=== PATIENT | female | born 1955 | race Caucasian/White ===

== ENCOUNTER → 2016-08-03 | Outpatient (CLI) | payer BC ==
[~2016-08-03] MED LIST: HYDR-3785 PO; IBUP600T44; LEVO100T PO; MULT-506 PO; PRLSR20 PO
[2016-08-03 13:09] LABS: ESTIMATED AVERAGE GLUCOSE 126 mg/dl; HA1C FLAG Normal (Normal)
== END | disposition home or self-care (01) ==
LOC: C.LABBFT 07:36
PROVIDERS: ATTEND Internal Medicine
DX: E03.9 Hypothyroidism, unspecified (principal); R73.09 Other abnormal glucose

== ENCOUNTER → 2016-08-16 | Outpatient (CLI) | payer BC ==
--- NOTE | 2016-08-16 16:34 | MAMMOGRAPHY REPORT ---
BILATERAL DIGITAL SCREENING MAMMOGRAM WITH CAD: 08/16/2016 CLINICAL HISTORY: Routine screening. Patient has no complaints. TECHNIQUE: Current study was also evaluated with a Computer Aided Detection (CAD) system. Bilatera l CC and MLO views were obtained. COMPARISON: Comparison is made to exams dated: 02/18/2013 mammogram, 09/12/2010 mammogram, 09/14/2009 mammogram, 09/08/2009 mammogram - [facility], and 10/09/2007. BREAST COMPOSITION: There are scattered areas of fibroglandular density in both breasts. FINDINGS: No suspicious masses, calcifications, or areas of architectural distortion are noted in e ither breast. There has been no significant interval change compared to prior exams. IMPRESSION: ACR BI-RADS CATEGORY 1: NEGATIVE There is no mammographic evidence of malignancy. A 1 year screening mammogram is recommended. The p atient will receive written notification of the results. Approximately 10% of breast cancers are not detected with mammography. A negative mammographic repor t should not delay biopsy if a clinically suggestive mass is present. Edna Ruiz M.D. ah/:08/16/2016 15:39:50 Clinical Physician Assistant: Joyce Crocker RT(R)(M), [facility] letter sent: Normal 1/2 BI-RADS Code: ACR BI-RADS Category 1: Negative
== END | disposition home or self-care (01) ==
LOC: C.MAMM 15:18
PROVIDERS: ATTEND Internal Medicine
DX: Z12.31 Encounter for screening mammogram for malignant neoplasm of breast (principal)

== ENCOUNTER → 2016-08-23 | Outpatient (CLI) | payer BC | END | disposition home or self-care (01) | LOC: C.PAPS 11:42 | PROVIDERS: ATTEND Obstetrics & Gynecology | DX: Z01.419 Encounter for gynecological examination (general) (routine) without abnormal findings (principal) ==

== ENCOUNTER → 2017-07-29 | Day surgery (SDC) | payer BC, OTHER ==
[2017-07-19 11:00] VITALS: BMI 28.0
[~2017-07-29] VITALS: Ht 175.3 cm; Wt 86.4 kg
[~2017-07-29] MED LIST changes: -HYDR-3785 PO; -IBUP600T44; -LEVO100T PO; +LEVO100T7 PO; +LIDOCAINE HCL 2% 2 ML VIAL (20MG/ML) ONE; +MIDAZOLAM HCL 1 MG/ML 2ML VIAL ONE; +ONDANSETRON INJ 2 MG/ML 2 ML VIAL ONE; +PROP1TAB PO; +PROPOFOL IV EMULSION 10 MG/ML 20 ML VIAL IV ONE; +SODIUM CHLORIDE 0.9% 500ML 500 ML IV ONE; +VITAMIN D PO
[2017-07-29 08:12] VITALS: Ht 175.3 cm; Wt 86.4 kg
--- NOTE | 2017-07-29 08:38 | Endo History and Physical ---
History & Physical Date of Service: Jul 29, 2017. Chief Complaint: POLYPS Referring Physician: DR. LUNA History of Present Illness 61 yo CF who presents for colonoscopy secondary to history of colon polyps. 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) Hx Thoracic Surgery: No Hx Orthopedic: No Hx Urinary Tract Surgery: No Family History None Social History Smoking Status: Never Smoker Hx Substance Use: No Hx Alcohol Use: Yes (OCCASIONALLY) Allergies Coded Allergies: Sulfa Drugs (Verified Allergy, Mild, SICK IN STOMACH, 07/19/17) Benzocaine (Verified Allergy, Unknown, TOPICAL BENZOCAINE>SKIN REACTION, ) Uncoded Allergies: AMOXICILLIAN (Allergy, Severe, SWELLING, 07/29/17) Current Medications Reported Home Medications Medications Dose Route/Sig Max Daily Dose Days Date Category [Vitamin D] 1 Tab PO HS 07/19/17 Reported Multivitamin (Multivitamins) Tab 1 Tab PO HS 07/19/17 Reported Inderal (Propranolol HCl) 60 Mg Tab 60 Mg PO HS 07/19/17 Reported Prilosec (Omeprazole) 20 Mg Capcr 20 Mg PO HS 07/19/17 Reported Levothyroxine Sodium 100 Mcg Tab 1 Tab PO HS 07/19/17 Reported Vital Signs Weight (Kilograms): 86.36 Height (Feet): 5 Height (Inches): 9 Date Time Temp Pulse Resp B/P (MAP) Pulse Ox O2 Delivery O2 Flow Rate FiO2 07/29/17 08:21 36.1 77 20 140/87 (104) 98 Room Air Physical Exam General Appearance: WD/WN, no apparent distress Respiratory/Chest: Auscultation: breath sounds normal Cardiovascular: Heart Auscultation: RRR Abdomen: Bowel Sounds: normal Inspection & Palpation: soft, non-distended, no tenderness, guarding & rebound Assessment and Plan Assessment: 61 yo CF who presents for colonoscopy secondary to history of colon polyps. Plan: Proceed with colonoscopy.
--- NOTE | 2017-07-29 09:12 | Discharge Instructions ---
Endoscopy Patient Instructions Date / Procedure(s) Performed Jul 29, 2017. Colonoscopy Allergy Information Coded Allergies: Sulfa Antibiotics (Verified Allergy, Mild, SICK IN THE STOMACH, 07/29/17) Benzocaine (Verified Allergy, Unknown, TOPICAL BENZOCAINE>SKIN REACTION, ) Uncoded Allergies: AMOXICILLIAN (Allergy, Severe, SWELLING, 07/29/17) Discharge Date / Findings Jul 29, 2017. Colon polyps Diverticulosis Internal hemorrhoids Medication Instructions OK to resume all medications today as prescribed Reported Home Medications Medications Dose Route/Sig Max Daily Dose Days Date Category [Vitamin D] 1 Tab PO HS 07/19/17 Reported Multivitamin (Multivitamins) Tab 1 Tab PO HS 07/19/17 Reported Inderal (Propranolol HCl) 60 Mg Tab 60 Mg PO HS 07/19/17 Reported Prilosec (Omeprazole) 20 Mg Capcr 20 Mg PO HS 07/19/17 Reported Levothyroxine Sodium 100 Mcg Tab 1 Tab PO HS 07/19/17 Reported Provider Instructions Activity Restrictions - No exercising or heavy lifting for 24 hours. - Do not drink alcohol the day of the procedure. - Do not drive a car or operate machinery until the day after the procedure. - Do not make any important decisions or sign important papers in 24 hours after the procedure. Following Day: - Return to full activity which may include returning to work/school. Diet Start your diet with liquids and light foods (jello, soup, juice, toast). Then eat your usual diet if not nauseated. Treatment For Common After Affects For mild abdominal pain, bloating, or excessive gas: - Rest - Eat lightly - Lie on right side Follow-Up Information Follow-up with DR. LUNA as scheduled Anesthesia Information What You Should Know You have had a procedure that required some medicine to reduce anxiety and discomfort. This treatment is called moderate sedation. After receiving the treatment, you may be sleepy, but you will be able to breathe on your own. The effects of the treatment may last for several hours. Follow these instructions along with Activity/Diet recommendations noted above: * Do NOT do anything where dizziness or clumsiness would be dangerous. * Rest quietly at home today, then you can be up and about tomorrow. * Have a responsible person stay with you the rest of today. * You may have had an I.V. today. If so, you may take the dressing off later today. Recommendations Call your doctor if: * Trouble breathing * Continuous vomiting for more than 24 hours * Temperature above 101 degrees * Severe abdominal pain or bloating * Pain not relieved by pain medicine ordered * There is increased drainage or redness from any incision * A large amount of rectal bleeding greater than 2-3 tablespoons. (If you had a polyp/s removed or have hemorrhoids, a small amount of blood - from the rectum is to be expected.) * You have any unanswered questions or concerns. IN THE EVENT OF A SERIOUS EMERGENCY, GO TO THE NEAREST EMERGENCY ROOM Your discharge instructions were prepared by provider Wayne Green. Patient Instructions Signature Page Ana Rivera Patient (or Guardian) Signature/Date: I have read and understand the instructions given to me by my caregivers. Caregiver/RN/Doctor Signature/Date: The above-named patient and/or guardian has received patient instructions on this date. + Original Patient Signature Page (only) stays with chart. Please make copy for patient.
--- NOTE | 2017-07-29 09:20 | GI REPORT ---
Procedure Date: 07/29/2017 8:23 AM Procedure: Colonoscopy Indications: High risk colon cancer surveillance: Personal history of colonic polyps Medicines: Monitored Anesthesia Care Complications: No immediate complications. Estimated Blood Loss: Estimated blood loss: none. Procedure: Pre-Anesthesia Assessment: - Prior to the procedure, a History and Physical was performed, and patient medications and allergies were reviewed. The patient's tolerance of previous anesthesia was also reviewed. The risks and benefits of the procedure and the sedation options and risks were discussed with the patient. All questions were answered, and informed consent was obtained. Prior Anticoagulants: The patient has taken no previous anticoagulant or antiplatelet agents. ASA Grade Assessment: II - A patient with mild systemic disease. After reviewing the risks and benefits, the patient was deemed in satisfactory condition to undergo the procedure. After I obtained informed consent, the scope was passed under direct vision. Throughout the procedure, the patient's blood pressure, pulse, and oxygen saturations were monitored continuously. The scope was introduced through the anus and advanced to the terminal ileum. The colonoscopy was performed without difficulty. The patient tolerated the procedure well. The quality of the bowel preparation was good. The terminal ileum, ileocecal valve, appendiceal orifice, and rectum were photographed. Findings: The perianal and digital rectal examinations were normal. A 3 mm polyp was found in the ascending colon. The polyp was sessile. The polyp was removed with a cold snare. Resection and retrieval were complete. A 8 mm polyp was found in the sigmoid colon. The polyp was pedunculated. The polyp was removed with a hot snare. Resection and retrieval were complete. Scattered small-mouthed diverticula were found in the entire colon. Non-bleeding internal hemorrhoids were found during retroflexion. The hemorrhoids were small. Impression: - One 3 mm polyp in the ascending colon, removed with a cold snare. Resected and retrieved. - One 8 mm polyp in the sigmoid colon, removed with a hot snare. Resected and retrieved. - Diverticulosis in the entire examined colon. - Non-bleeding internal hemorrhoids. Recommendation: - Resume previous diet. - Continue present medications. - Repeat colonoscopy for surveillance based on pathology results. - Return to primary care physician as previously scheduled. Wayne Green DO 07/29/2017 9:20:01 AM This report has been signed electronically. Note Initiated On: 07/29/2017 8:23 AM I attest to the content of the Intraoperative Record and orders documented therein, exceptions below
--- NOTE | 2017-07-29 09:35 | Anesthesiology Progress Note ---
Anesthesia Post Op Note Date & Time Jul 29, 2017 at 09:35 Vital Signs Pain Intensity: 0 Vital Signs Past 12 Hours Date Time Temp Pulse Resp B/P (MAP) Pulse Ox O2 Delivery O2 Flow Rate FiO2 07/29/17 09:30 56 20 126/75 (92) 95 Room Air 07/29/17 09:15 65 20 122/70 (87) 94 Room Air 07/29/17 08:21 36.1 77 20 140/87 (104) 98 Room Air Notes Mental Status: alert / awake / arousable, participated in evaluation Pt Amnestic to Procedure: Yes Nausea / Vomiting: adequately controlled Pain: adequately controlled Airway Patency, RR, SpO2: stable & adequate BP & HR: stable & adequate Hydration State: stable & adequate Anesthetic Complications: no major complications apparent
[2017-07-29 09:45] VITALS: BP 131/85; PULSE 58; O2SAT 95
== END | disposition home or self-care (01) ==
LOC: C.GI 07:55
PROVIDERS: ATTEND Internal Medicine
DX: Z12.11 Encounter for screening for malignant neoplasm of colon (principal); D12.2 Benign neoplasm of ascending colon; D12.5 Benign neoplasm of sigmoid colon; Z86.010 Personal history of colon polyps; K57.30 Diverticulosis of large intestine without perforation or abscess without bleeding; K64.8 Other hemorrhoids; Z90.49 Acquired absence of other specified parts of digestive tract; Z90.721 Acquired absence of ovaries, unilateral

== ENCOUNTER → 2017-08-09 | Outpatient (CLI) | payer OTHER ==
[~2017-08-09] MED LIST changes: -LIDOCAINE HCL 2% 2 ML VIAL (20MG/ML) ONE; -MIDAZOLAM HCL 1 MG/ML 2ML VIAL ONE; -ONDANSETRON INJ 2 MG/ML 2 ML VIAL ONE; -PROPOFOL IV EMULSION 10 MG/ML 20 ML VIAL IV ONE; -SODIUM CHLORIDE 0.9% 500ML 500 ML IV ONE
[2017-08-09 12:37] LABS: BASO ABS # 0.07 K/uL (0-0.2); EOS % 2.4 %; EOS ABS # 0.16 K/uL (0-0.5); HEMOGLOBIN 13.6 g/dL (12.0-16.0); IG# 0.01 K/uL (0.00-0.02); LYMPH % 32.2 %; LYMPH ABS # 2.17 K/uL (1.2-3.4); MEAN CELL VOLUME 92.5 fL (80-100); MEAN CORPUSCULAR HGB CONC 32.4 g/dl (32-36); MEAN PLATELET VOLUME 10.5 fL (7.4-10.4); MONO % 11.6 %; MONO ABS # 0.78 K/uL (0.11-0.59); NEUT % 52.7 %; NEUT ABS # 3.55 K/uL (1.4-6.5); PLATELET COUNT 272 K/uL (130-400); RED CELL DISTRIBUTION WIDTH CV 14.1 % (11.5-14.5); RED CELL DISTRIBUTION WIDTH SD 47.4 fL (36.4-46.3); WHITE BLOOD COUNT 6.74 K/uL (4.8-10.8)
== END | disposition home or self-care (01) ==
LOC: C.LABBFT 08:01
PROVIDERS: ATTEND Internal Medicine
DX: R73.03 Prediabetes (principal)

== ENCOUNTER → 2017-10-21 | Outpatient (CLI) | payer OTHER | END | disposition home or self-care (01) | LOC: C.MAMM 09:20 | PROVIDERS: ATTEND Internal Medicine | DX: M85.88 Other specified disorders of bone density and structure, other site (principal) ==

== ENCOUNTER → 2018-01-30 | Outpatient (CLI) | payer OTHER ==
[2018-01-30 13:13] LABS: ALBUMIN 3.6 gm/dl (3.4-5.0); ALKALINE PHOSPHATASE 92 U/L (45-117); ALT/SGPT 32 U/L (12-78); AST/SGOT 19 U/L (15-37); BLOOD UREA NITROGEN 13 mg/dl (7-18); CALCIUM 8.6 mg/dl (8.5-10.1); CARBON DIOXIDE 25 mmol/L (21-32); CHOLESTEROL 149 mg/dl (0-200); CREATININE 1.08 mg/dl (0.60-1.20); GLUCOSE 105 mg/dl (70-99); LDL CHOLESTEROL CALCULATED 72 mg/dl; POTASSIUM 4.5 mmol/L (3.5-5.1); SODIUM 140 mmol/L (136-145); TOTAL PROTEIN 7.3 gm/dl (6.4-8.2)
== END | disposition home or self-care (01) ==
LOC: C.LABBFT 08:59
PROVIDERS: ATTEND Physician Assistant Medical
DX: E03.9 Hypothyroidism, unspecified (principal); R73.03 Prediabetes

== ENCOUNTER 2020-02-28 07:24 | Inpatient (IN) ==
--- NOTE | 2020-02-28 07:59 | Emergency Department Note ---
Impression & Plan Bright red rectal bleeding ED Provider Note Provider: Cooper Gross MD DATE OF SERVICE: 02/27/2020 CHIEF COMPLAINT: Rectal bleeding HISTORY OF PRESENT ILLNESS: Patient is a 64-year-old female with a history of prediabetes, hypothyroidism, GERD, history of tubular adenoma with a colonoscopy last in July 2017 scheduling for repeat colonoscopy in 2020 presenting today complaining of rectal bleeding. Patient states that yesterday evening around dinnertime have some dark red blood noted in her stool. This morning had a bowel movement that was all bright red blood. Denies any pain. Denies fever currently. Denies sick contacts or suspect food intake. Denies history of similar bleeding. Patient is not on high risk anticoagulant or antiplatelets. Patient states compliance with her home omeprazole. Denies nausea or vomiting. Denies symptomatic anemia such as lightheadedness, dizziness, shortness of breath, or chest pain. Patient states she was a little bit achy last night and took 2 Advil but does not do this regularly. REVIEW OF SYSTEMS: A total of 10 review of systems was obtained and negative except as stated above in the HPI. PAST MEDICAL HISTORY: As noted above MEDICATIONS: Reviewed patient's home medications which do not occlude anticoagulants or antiplatelets. SOCIAL HISTORY: and lives at home with PHYSICAL EXAM: GENERAL: alert and oriented in no acute distress on stretcher Head: normocephalic and atraumatic EYES: No injection, discharge or icterus. NECK: Trachea midline. Supple. ENT: Mucous membranes pink and moist. LUNGS: Airway patent. No retractions. Breath sounds clear with good air entry bilaterally. HEART: Regular rate and rhythm. No chest wall tenderness ABDOMEN: Soft and non-tender, without guarding or rebound. No masses Rectal: With nurse data sciences director does show bright blood blood per rectum with maybe a slight palpable internal hemorrhoid. BACK: No bilateral flank tenderness. SKIN: Acyanotic, warm, dry, without rashes EXTREMITIES: Without swelling, tenderness or deformity NEUROLOGICAL: No focal deficits. No aphasia. No facial droop or slurred speech. Ambulatory. EK beats minute normal sinus rhythm. No PVC or PAC. No acute ST segment elevation or depression. CONTINUOUS CARDIAC MONITORING: was ordered and showed a heart rate of 70 bpm in normal sinus rhythm Patient's hypertension was referred to the hospitalist HOSPITAL COURSE: 07 Patient was first seen and H&P performed. 0931 Patient reassessed and updated. Patient was having some improvement compared to earlier hypotension and nausea with the IV start. Discussed with her findings and recommendation for further observation. Patient's laboratory studies and imaging reviewed. Differential includes Diverticulosis, AVM, coagulopathy, colitis, inflammatory bowel disease, malignancy, Jade-Rios tear, esophagitis, peptic ulcer dise ase, variceal bleed, gastritis, epistaxis, fissure, hemorrhoids, as well as other pathologies. IMPRESSION/MEDICAL DECISION MAKING: Patient is ambulatory in the room without tachycardia or hypotension initially. Benign abdomen. Patient states some slight bleeding yesterday is now bright red in the toilet today. Seems less likely to be infectious. No history of similar. Already on a PPI. Believe less likely to be an upper GI bleed more likely to be lower in nature. Colonoscopy from 2018 was reviewed as well as her prior medical record. CT of the abdomen pelvis to look for possible inf lammatory changes or signs of bleeding was complete as well as basic laboratory studies. Hemoglobin is 11.7 approximately 2 g lower than 10 days ago when she had previous labs. No thrombocytopenia. Electrolytes within normal limits. Kidney function stable. No transaminitis. No evidence of lipase elevation indicative of pancreatitis. Patient's blood pressure did drop which became nauseous and slight diaphoretic after IV placement. Given some Zofran. IV fluid bolus. Patient did have improvement with this. CT without acute findings. Unsure of exact source although she is much more likely to be lower GI rather than upper GI bleed given her risk factors. Did give a bolus of Protonix in any case. Discussed with her given that she is dropped 2 g over the past 10 days as well as continued bright red bleeding with a further observation and possible GI consultation would be reasonable in the hospital. The hospitalist group was contacted. DIAGNOSIS: Bright red rectal bleeding. DISPOSITION: Hospitalist evaluate. Past Med/Surg History Medical History GERD (gastroesophageal reflux disease) Hypothyroidism Osteopenia Prediabetes Tubular adenoma Family History (Updated 02/12/20 @ 15:11 by Lucina Wood MA) Father Myocardial infarction Denies family history of Ovarian cancer Prostate cancer Deep vein thrombosis Depression Breast cancer Lung cancer COPD (chronic obstructive pulmonary disease) Colorectal cancer Social History Smoking Status: Never smoker Second Hand Exposure: No; Hx Alcohol Use: Yes Alcohol type: wine Alcohol Intake Frequency: Monthly or Less Hx Substance Use: No Preferred Language: Welsh Communication Ability: Effective Visual Impairment: No Limitations Hearing Ability: Normal Principal Systems Architect Required: No Beliefs That Will Affect Care: None marital status: Current Living Situation: Spouse and Family Current Living Situation Comment: Spouse and son current occupational status: employed current occupation: [employer] Other Information That Helps Us Care for You: No Feels Safe at Home: Yes Safety Concerns: Feels Safe At This Time Childhood Exposure to Second-Hand Smoke: No caffeine: Yes during the past year weight has: remained stable Dental Care, Regularly: Yes Physical Activity Frequency: Daily Physical Activity Frequency Comment: walk Seatbelt Use: always Sunscreen Use: Yes Allergies Allergies Allergy/AdvReac Type Severity Reaction Status Date / Time amoxicillin Allergy Severe .swelling Verified 02/28/20 09:29 Sulfa (Sulfonamide Allergy Mild SICK IN Verified 02/28/20 07:46 Antibiotics) THE STOMACH benzocaine Allergy Unknown TOPICAL Verified 02/28/20 07:46 BENZOCAINE>SKIN REACTION Home Meds Home Medications Medication Instructions Recorded Confirmed cholecalciferol (vitamin D3) 25 mcg PO HS #0 07/19/17 02/28/20 [Vitamin D3] multivitamin 1 tab PO HS #0 tab 07/19/17 02/28/20 ibuprofen [Advil Liqui-Gel] 400 mg PO Q6H PRN 02/28/20 02/28/20 levothyroxine 100 mcg PO HS 02/28/20 02/28/20 omeprazole 20 mg PO HS 02/28/20 02/28/20 propranolol 60 mg PO HS 02/28/20 02/28/20 Results & Data (ED) Vital Signs Vital Signs - 24 hr 02/28/20 07:27 02/28/20 07:34 02/28/20 08:18 Temperature 36.5 C Temperature Source Oral Pulse Rate 66 Pulse Rate [Apical] 65 Respiratory Rate 18 18 Blood Pressure 153/93 H Blood Pressure [Left Arm] 96/66 L Blood Pressure Mean 113 Blood Pressure Mean [Left Arm] 76 Pulse Oximetry 98 98 98 Oxygen Delivery Method Room Air Room Air Room Air Sepsis Recent Fever Within 48 Hours No Sepsis New/Unexplained Change in Mental Status No Sepsis Action Taken by Nursing No Action Required 02/28/20 09:09 02/28/20 11:00 Temperature Temperature Source Pulse Rate Pulse Rate [Apical] 61 72 Respiratory Rate 18 Blood Pressure Blood Pressure [Left Arm] 109/65 120/78 Blood Pressure Mean Blood Pressure Mean [Left Arm] 79 92 Pulse Oximetry 97 Oxygen Delivery Method Room Air Sepsis Recent Fever Within 48 Hours Sepsis New/Unexplained Change in Mental Status Sepsis Action Taken by Nursing Laboratory Data Result diagrams: 02/28/20 08:05 02/28/20 08:05 Lab Results 02/28/20 02/28/20 02/28/20 Range/Units 07:59 08:05 08:05 WBC 6.00 (4.8-10.8) K/uL RBC 3.93 L (4.2-5.4) M/uL Hgb 11.7 L (12.0-16.0) g/dL Hct 35.9 L (37-47) % MCV 91.3 (80-100) fL MCH 29.8 (25-34) pg MCHC 32.6 (32-36) g/dL RDW Std Deviation 48.7 H (36.4-46.3) fL RDW Coeff of Taco 14.4 (11.5-14.5) % Plt Count 253 (130-400) K/uL MPV 10.6 H (7.4-10.4) fL Immature Gran % (Auto) 0.2 % Neut % (Auto) 42.8 % Lymph % (Auto) 41.7 % [place] % (Auto) 11.8 % Eos % (Auto) 2.8 % Baso % (Auto) 0.7 % Neut # (Auto) 2.57 (1.4-6.5) K/uL Lymph # (Auto) 2.50 (1.2-3.4) K/uL [place] # (Auto) 0.71 H (0.11-0.59) K/uL Eos # (Auto) 0.17 (0-0.5) K/uL Baso # (Auto) 0.04 (0-0.2) K/uL Immature Gran # (Auto) 0.01 (0.00-0.02) K/uL PT (9.0-12.0) Seconds INR (0.9-1.1) Sodium 143 (136-145) mmol/L Potassium 3.9 (3.5-5.1) mmol/L Chloride 112 H (98-107) mmol/L Carbon Dioxide 25 (21-32) mmol/L Anion Gap 6.0 (3-11) BUN 15 (7-18) mg/dl Creatinine 1.06 (0.6-1.2) mg/dl Est Cr Clr Drug Dosing 61.6 ml/min Est GFR ( Amer) 63.8 Est GFR (Non-Af Amer) 55.1 BUN/Creatinine Ratio 14.2 (10-20) Glucose 117 H (70-99) mg/dl Calcium 8.5 (8.5-10.1) mg/dl Total Bilirubin 0.5 (0.2-1) mg/dl AST 19 (15-37) U/L ALT 25 (12-78) U/L Alkaline Phosphatase 81 (45-117) U/L Troponin I < 0.015 (0-0.045) ng/ml Total Protein 6.6 (6.4-8.2) gm/dl Albumin 3.1 L (3.4-5.0) gm/dl Globulin 3.5 (2.5-4.0) gm/dl Albumin/Globulin Ratio 0.9 (0.9-2) Lipase 78 (73-393) U/L Blood Type O Positive Antibody Screen NEGATIVE 02/28/20 Range/Units 08:05 WBC (4.8-10.8) K/uL RBC (4.2-5.4) M/uL Hgb (12.0-16.0) g/dL Hct (37-47) % MCV (80-100) fL MCH (25-34) pg MCHC (32-36) g/dL RDW Std Deviation (36.4-46.3) fL RDW Coeff of Taco (11.5-14.5) % Plt Count (130-400) K/uL MPV (7.4-10.4) fL Immature Gran % (Auto) % Neut % (Auto) % Lymph % (Auto) % [place] % (Auto) % Eos % (Auto) % Baso % (Auto) % Neut # (Auto) (1.4-6.5) K/uL Lymph # (Auto) (1.2-3.4) K/uL [place] # (Auto) (0.11-0.59) K/uL Eos # (Auto) (0-0.5) K/uL Baso # (Auto) (0-0.2) K/uL Immature Gran # (Auto) (0.00-0.02) K/uL PT 11.0 (9.0-12.0) Seconds INR 1.0 (0.9-1.1) Sodium (136-145) mmol/L Potassium (3.5-5.1) mmol/L Chloride (98-107) mmol/L Carbon Dioxide (21-32) mmol/L Anion Gap (3-11) BUN (7-18) mg/dl Creatinine (0.6-1.2) mg/dl Est Cr Clr Drug Dosing ml/min Est GFR ( Amer) Est GFR (Non-Af Amer) BUN/Creatinine Ratio (10-20) Glucose (70-99) mg/dl Calcium (8.5-10.1) mg/dl Total Bilirubin (0.2-1) mg/dl AST (15-37) U/L ALT (12-78) U/L Alkaline Phosphatase (45-117) U/L Troponin I (0-0.045) ng/ml Total Protein (6.4-8.2) gm/dl Albumin (3.4-5.0) gm/dl Globulin (2.5-4.0) gm/dl Albumin/Globulin Ratio (0.9-2) Lipase (73-393) U/L Blood Type Antibody Screen Administered Medications Potassium Chloride/Sodium Chloride (Normal Saline W/20 Meq Kcl) 20 meq in 1,000 mls @ 125 mls/hr IV .Q8H PERI Stop: 03/29/20 12:59 Last Admin: 02/28/20 13:10 Dose: 125 mls/hr Documented by: [id number] Discontinued Medications Sodium Chloride (Nss 1000ml) 1,000 mls @ 999 mls/hr IV .Q1H1M ONE Stop: 02/28/20 09:26 Last Infusion: 02/28/20 09:41 Dose: 0 mls/hr Documented by: [id number] Admin: 02/28/20 08:31 Dose: 999 mls/hr Documented by: [id number] Pantoprazole Sodium 80 mg/ (Dextrose) 100 mls @ 400 mls/hr IV ONE STA Stop: 02/28/20 10:06 Last Infusion: 02/28/20 11:05 Dose: 0 mls/hr Documented by: [id number] Admin: 02/28/20 10:42 Dose: 400 mls/hr Documented by: [id number] Ioversol (Optiray 320 125ml) 118 ml IV ONCE ONE Stop: 02/28/20 08:06 Last Admin: 02/28/20 08:05 Dose: 118 ml Documented by: [id number] Ondansetron HCl (Ondansetron Inj 2 Mg/Ml 2 Ml Vial) 4 mg IV NOW STA Stop: 02/28/20 08:08 Last Admin: 02/28/20 08:09 Dose: 4 mg Documented by: [id number] Discharge Plan Visit Data Chief Complaint: GI Bleed Stated Complaint: INTERNAL BLEEDING ED Provider: Cooper Gross Discharge Problem: Bright red rectal bleeding Patient Disposition: Admitted As Inpatient Discharge Instructions Interventions: ED Discharge Assessment Last Done: 02/28/20 11:32
[2020-02-28] MEDS ORDERED: OPTIRAY 320 125ml IV ONE (08:05)
[2020-02-28] MEDS ORDERED: ONDANSETRON INJ 2 MG/ML 2 ML VIAL IV STA (08:07)
[2020-02-28 08:18] LABS: Basophils # (auto) 0.04 K/uL (0-0.2); Basophils % (auto) 0.7 %; Eosinophils # (auto) 0.17 K/uL (0-0.5); Eosinophils % (auto) 2.8 %; Hematocrit (blood only) 35.9 % (37-47); Hemoglobin 11.7 g/dL (12.0-16.0); Immature Granulocytes # (auto) 0.01 K/uL (0.00-0.02); Immature Granulocytes % (auto) 0.2 %; Lymphocytes % (auto) 41.7 %; Mean Corpuscular Hemoglobin 29.8 pg (25-34); Mean Corpuscular Hgb Conc 32.6 g/dL (32-36); Mean Corpuscular Volume 91.3 fL (80-100); Mean Platelet Volume 10.6 fL (7.4-10.4); Monocytes # (auto) 0.71 K/uL (0.11-0.59); Monocytes % (auto) 11.8 %; Neutrophils # (auto) 2.57 K/uL (1.4-6.5); Neutrophils % (auto) 42.8 %; Platelet Count 253 K/uL (130-400); RDW Coefficient of Variation 14.4 % (11.5-14.5); RDW Standard Deviation 48.7 fL (36.4-46.3); Red Blood Count 3.93 M/uL (4.2-5.4)
[2020-02-28] MEDS ORDERED: SODIUM CHLORIDE 0.9% 1000ML 1,000 ML IV ONE (08:26)
[2020-02-28 08:36] LABS: Alanine Aminotransferase 25 U/L (12-78); Albumin Level 3.1 gm/dl (3.4-5.0); Aspartate Aminotransferase 19 U/L (15-37); BUN Creatinine Ratio 14.2 (10-20); Blood Urea Nitrogen 15 mg/dl (7-18); Calcium 8.5 mg/dl (8.5-10.1); Carbon Dioxide 25 mmol/L (21-32); Chloride 112 mmol/L (98-107); Creatinine Clr Calc Pharmacy 61.6 ml/min; Est GFR (African American) 63.8; Est GFR (Non-African American) 55.1; Glucose 117 mg/dl (70-99); Lipase 78 U/L (73-393); Potassium 3.9 mmol/L (3.5-5.1); Sodium 143 mmol/L (136-145)
[2020-02-28 08:41] LABS: Albumin Globulin Ratio 0.9 (0.9-2); Alkaline Phosphatase 81 U/L (45-117); Bilirubin,Total 0.5 mg/dl (0.2-1); Globulin 3.5 gm/dl (2.5-4.0); Total Protein 6.6 gm/dl (6.4-8.2); Troponin I < 0.015 ng/ml (0-0.045)
--- NOTE | 2020-02-28 09:19 | CT Scan Report ---
CT angio abdomen pelvis w con CT DOSE: 811.97 mGy.cm CLINICAL HISTORY: rectal bleeding TECHNIQUE: CT angiography abdomen and pelvis was performed in a dynamic helical fashion during intrav enous administration of 118 cc of Optiray 320. MIP images were acquired. A dose lowering technique w as utilized adhering to the principles of ALARA. COMPARISON STUDY: CT scan performed July 2006 FINDINGS: Visualized portions lung bases reveal mild dependent atelectatic change. There is hepatic steatosis. There is a stable 11 mm right lobe hepatic hypodensity. This is felt to b e benign. There is no ductal dilatation. The gallbladder is surgically absent. There is a 54 mm hypodense splenic mass with probable septations. This potentially corresponds to an 11 mm splenic hypodensity visualized in the preceding study. This lesion is indeterminate given the s ignificant interval growth. No pancreatic masses are visualized. No adrenal masses are visualized. There is no hydronephrosis. No solid renal masses are visualized in this arterial phase study. There are no transition zones to indicate bowel obstruction. There is leos colonic diverticulosis. The re is no current evidence of acute diverticulitis. There are no findings to indicate acute appendicit is. There is no ascites. There is no free intraperitoneal air. There is no pathologic adenopathy. There are no abnormal pelvic masses. No destructive skeletal lesions are visualized. There is no evidence of aortic aneurysm. There is no evidence for superior mesenteric celiac or renal artery stenosis. 2 right renal arteries are visualized. The inferior mesenteric artery is patent. There is no evidence for iliac artery stenosis. IMPRESSION: 1. No evidence of aortic aneurysm. 2. No evidence of aortic or iliac artery stenosis. 3. No evidence of celiac superior mesenteric or renal artery stenosis. 4. No evidence of bowel obstruction. No evidence of free air 5..Leos-colonic diverticulosis. No evidence of acute diverticulitis 6. Indeterminate 5.4 cm splenic mass 7. Hepatic steatosis ACT 112: Negative or not required by law. Electronically signed by: Murtaza Arriaza M.D. 02/28/2020 9:18 AM
[2020-02-28] MEDS ORDERED: PANTOprazole 80 MG in DEXTROSE 5% 100 ML IV STA (09:52)
--- NOTE | 2020-02-28 10:28 | Electrocardiogram Report ---
Test Reason : Blood Pressure : / mmHG Vent. Rate : 065 BPM Atrial Rate : 065 BPM P-R Int : 178 ms QRS Dur : 070 ms QT Int : 414 ms P-R-T Axes : 021 -07 005 degrees QTc Int : 430 ms Normal sinus rhythm Minimal voltage criteria for LVH, may be normal variant Borderline ECG No previous ECGs available Confirmed by Matt Galvin ([id number]) on 02/28/2020 10:28:01 AM Referred By: REFERRED SELF Confirmed By:Matt Galvin
--- NOTE | 2020-02-28 11:33 | History & Physical Report ---
Date of Service February 28, 2020 Assessment & Plan (1) Bright red rectal bleeding: Patient is a 64 yo female with PMHx of hypothyroidism, GERD, pre-DM, essential tremor, and tubular adenoma (diagnosed on colonoscopy July 2017 with plan for repeat colonoscopy July 2020). She presented to the ED on the morning of 02/27 with complaint of bright red blood per rectum since the night prior. Pt has reported some fatigue but otherwise denies abdominal pain, fever, n/v, lightheadedness/dizziness, CP, and SOB. ED course: EKG, CT abdomen, labs, NSS 1L bolus x1, protonix 80mg IV, Zofran 4mg IV Bright red rectal bleeding Acute blood loss anemia - Differential includes lower GI bleed, internal hemorrhoid rupture, upper GI bleed, AV fistula malformation, infectious colitis - CT abdomen in ED showed leos-colonic diverticulosis w/o evidence of acute diverticulitis and indeterminate 5.4 cm splenic mass but otherwise no acute findings. - Admitted patient to tele - Initiate NPO status - NS + 20meq K IVF at a rate of 125 cc/hr - Pt with Hgb of 11.7 on admission (Hgb 12 days ago was 13.6) - Will monitor H/H q6h, transfuse as needed - Pt type and screened in the ED --> O+/Ab neg - Zofran 4mg IV q6h prn for nausea - Will consult GI Hypothyroidism - Hold home levothyroxine 100mcg po qhs - Will start levothyroxine 75mcg IV daily - Plan to restart home levothyroxine 100mcg po once patient is no longer NPO status Tubular Adenoma - Colonoscopy with Dr. Green (GI) in July 2017 revealed tubular adenoma - GI consulted as noted above GERD - Hold home omeprazole 20mg qhs - Start IV protonix 40mg IV daily - Plan to restart home omeprazole once patient is no longer NPO status Prediabetes - Pt with hx of prediabetes with A1c of 6.0% on labs 02/17/20 - Will monitor BG levels on BMP daily Essential Tremor - Hold home propranolol 60mg qhs while NPO FENGI: NPO; NS + 20meq K IVF at a rate of 125 cc/hr DVT prophylaxis: SCDs, holding on anticoagulation due to concern for bleed Dispo: Med/surg tele Code: Full Code (2) Anemia: (3) Hypothyroidism: (4) Tubular adenoma: (5) GERD (gastroesophageal reflux disease): (6) Prediabetes: (7) Essential tremor: History of Present Illness Chief Complaint: rectal bleeding Primary Care Provider: Bob Nagy MD Mrs. Ana Rivera is a 64 yo female who presented to the ED this morning (02/28/2020) with complaint of bright red bleeding per rectum. Patient states that last night, after dinner, she went to the bathroom and had a bowel movement when she noticed bright red blood in the toilet. Patient has had 3 more bowel movements since that time, all of which have had a reportedly "significant" amount of blood in the toilet. She did take 2 Advil last night for some generalized muscle pain but patient notes that she does not usually take Advil; she is not on any other anticoagulants or antiplatelets. Patient denies abdominal pain, fever, nausea, vomiting, lightheadedness, dizziness, SOB, or CP. She denies any recent abnormal or undercooked food intake. Pt denies any recent sick contacts. She denies a similar prior episode of rectal bleeding. Pt's PMHx includes tubular adenoma w/ colonoscopy July [address] Green; it was planned that she would have a repeat colonoscopy in Jul/Aug 2020. She also has GERD controlled with 20mg omeprazole, hypothyroidism controlled with 100mcg levothyroxine, essential tremor controlled with 60mg propranolol, and pre-DM. She has never been a tobacco smoker, drinks alcohol occasionally, and denies any other drug use. Patient is and lives at home with her . Allergies Allergy/AdvReac Type Severity Reaction Status Date / Time amoxicillin Allergy Severe .swelling Verified 02/28/20 09:29 Sulfa (Sulfonamide Allergy Mild SICK IN Verified 02/28/20 07:46 Antibiotics) THE STOMACH benzocaine Allergy Unknown TOPICAL Verified 02/28/20 07:46 BENZOCAINE>SKIN REACTION Home Medications Home Medications Medication Instructions Recorded Confirmed Type cholecalciferol (vitamin D3) 25 mcg PO HS #0 07/19/17 02/28/20 History [Vitamin D3] multivitamin 1 tab PO HS #0 tab 07/19/17 02/28/20 History ibuprofen [Advil Liqui-Gel] 400 mg PO Q6H PRN 02/28/20 02/28/20 History levothyroxine 100 mcg PO HS 02/28/20 02/28/20 History omeprazole 20 mg PO HS 02/28/20 02/28/20 History propranolol 60 mg PO HS 02/28/20 02/28/20 History Past Med/Surg History Medical History (Updated 02/29/20 @ 10:03 by HAYLIE Peña) Essential tremor GERD (gastroesophageal reflux disease) Hypothyroidism Osteopenia Prediabetes Tubular adenoma Surgical History (Updated 02/29/20 @ 10:02 by HAYLIE Peña) H/O colonoscopy with polypectomy (07/2017) Family History Father Myocardial infarction Denies family history of Ovarian cancer Prostate cancer Deep vein thrombosis Depression Breast cancer Lung cancer COPD (chronic obstructive pulmonary disease) Colorectal cancer Social History Smoking Status: Never smoker Second Hand Exposure: No; Hx Alcohol Use: Yes Alcohol type: wine Alcohol Intake Frequency: Monthly or Less Hx Substance Use: No Preferred Language: Tajik Communication Ability: Effective Visual Impairment: No Limitations Hearing Ability: Normal Drupal Architect Required: No Beliefs That Will Affect Care: None marital status: Current Living Situation: Spouse and Family Current Living Situation Comment: Spouse and son current occupational status: employed current occupation: [employer] Other Information That Helps Us Care for You: No Feels Safe at Home: Yes Safety Concerns: Feels Safe At This Time Childhood Exposure to Second-Hand Smoke: No caffeine: Yes during the past year weight has: remained stable Dental Care, Regularly: Yes Physical Activity Frequency: Daily Physical Activity Frequency Comment: walk Seatbelt Use: always Sunscreen Use: Yes Review of Systems Review of Systems: See HPI. CONSTITUTIONAL: + fatigue. Denies fever or chills. HEENT: Denies sore throat or changes in vision. RESPIRATORY: Denies SOB or cough. CV: Denies chest pain or edema. GI: + rectal bleeding. Denies abdominal pain, nausea, or vomiting. NEUROLOGICAL: Denies headache, lightheadedness, or dizziness. Physical Exam Physical Exam: GENERAL: No acute distress. Well developed and well nourished. Vital signs reviewed as above. A/O x3. EYES: PERRLA. EOMI. Conjunctival pallor bilaterally. HENT: Slightly dry mucous membranes. No pharyngeal erythema or exudates. RESPIRATORY: Clear to auscultation bilaterally. No wheezing, rales, or rhonchi. CARDIOVASCULAR: Regular rate and rhythm. No murmurs. ABDOMEN: Soft, non-tender and non-distended. No palpable masses. Normal bowel sounds. Rectal exam deferred as patient had just had rectal exam completed by ED physician. EXTREMITIES: No edema. Non-tender. SKIN: Warm, dry. No rashes or lesions. NEUROLOGIC: A/O x3. No focal neurological deficits. CN II-XII grossly intact, but not individually tested. PSYCHIATRIC: Cooperative. Appropriate mood. Flat affect. Results & Data Results & Data ([facility]) Vital Signs (Past 12 Hours) Vital Signs Temp Pulse Pulse Resp BP BP Pulse Ox 02/28/20 11:00 72 18 120/78 97 02/28/20 09:09 61 109/65 02/28/20 08:18 65 18 96/66 L 98 02/28/20 07:34 98 02/28/20 07:27 36.5 C 66 18 153/93 H 98 Code Status & VTE Plan VTE Prophylaxis Plan VTE Prophylaxis will be ordered: Yes Supervising Physician Co-Signing Physician Notes Resident Physician Supervision Note: I independently interviewed and examined the patient and verified the brandon history and physical, reviewed labs and image studies, discussed the case with the resident Dr. Martinez and agree with the findings and care plan.
[2020-02-28] MEDS ORDERED: ACETAMINOPHEN 325 MG TAB PO PRN (12:21)
[2020-02-28] MEDS ORDERED: ONDANSETRON INJ 2 MG/ML 2 ML VIAL IV PRN (12:21)
[2020-02-28] MEDS: NSS + 20MEQ KCL 20 MEQ/1,000 ML BAG IV SCH ×2 (13:10→21:14)
[2020-02-28 14:15] LABS: Hematocrit (blood only) 36.8 % (37-47); Hemoglobin 11.9 g/dL (12.0-16.0)
[2020-02-28 20:08] LABS: Hemoglobin 10.5 g/dL (12.0-16.0)
[2020-02-29] MEDS: NSS + 20MEQ KCL 20 MEQ/1,000 ML BAG IV SCH ×2 (05:25→16:23)
[2020-02-29 06:37] LABS: Basophils # (auto) 0.03 K/uL (0-0.2); Basophils % (auto) 0.5 %; Eosinophils # (auto) 0.14 K/uL (0-0.5); Eosinophils % (auto) 2.4 %; Hematocrit (blood only) 29.6 % (37-47); Hemoglobin 9.6 g/dL (12.0-16.0); Immature Granulocytes # (auto) 0.01 K/uL (0.00-0.02); Immature Granulocytes % (auto) 0.2 %; Lymphocytes # (auto) 2.21 K/uL (1.2-3.4); Mean Corpuscular Hemoglobin 29.8 pg (25-34); Mean Corpuscular Hgb Conc 32.4 g/dL (32-36); Mean Corpuscular Volume 91.9 fL (80-100); Mean Platelet Volume 10.3 fL (7.4-10.4); Neutrophils # (auto) 2.72 K/uL (1.4-6.5); Neutrophils % (auto) 46.9 %; Platelet Count 194 K/uL (130-400); RDW Coefficient of Variation 14.5 % (11.5-14.5); RDW Standard Deviation 48.8 fL (36.4-46.3); Red Blood Count 3.22 M/uL (4.2-5.4); White Blood Count 5.81 K/uL (4.8-10.8)
[2020-02-29 07:09] LABS: BUN Creatinine Ratio 13.5 (10-20); Creatinine Clr Calc Pharmacy 68.8 ml/min; Est GFR (African American) 73.8; Est GFR (Non-African American) 63.7; Phosphorus 3.2 mg/dl (2.5-4.9); Potassium 4.2 mmol/L (3.5-5.1)
[2020-02-29] MEDS: LEVOTHYROXINE SODIUM 75 MCG in SYRINGE 0 ML IV SCH (09:06)
--- NOTE | 2020-02-29 09:28 | Hospitalist Progress Note ---
Date of Service February 29, 2020 Assessment & Plan (1) Bright red rectal bleeding: Patient is a 64 yo female with PMHx of hypothyroidism, GERD, pre-DM, essential tremor, and tubular adenoma (diagnosed on colonoscopy July 2017 with plan for repeat colonoscopy July 2020). She presented to the ED on the morning of 02/27 with complaint of bright red blood per rectum since the night prior. Pt has reported some fatigue but otherwise denies abdominal pain, fever, n/v, lightheadedness/dizziness, CP, and SOB. ED course: EKG, CT abdomen, labs, NSS 1L bolus x1, protonix 80mg IV, Zofran 4mg IV Bright red rectal bleeding Acute blood loss anemia - Differential includes lower GI bleed, internal hemorrhoid rupture, upper GI bleed, AV fistula malformation, infectious colitis - CT abdomen in ED showed leos-colonic diverticulosis w/o evidence of acute diverticulitis and indeterminate 5.4 cm splenic mass but otherwise no acute findings. - Admitted patient to tele - Initiate NPO status - NS + 20meq K IVF at a rate of 125 cc/hr - Pt with Hgb of 11.7 on admission (Hgb 12 days ago was 13.6) - Will monitor H/H q6h, transfuse as needed - Pt type and screened in the ED --> O+/Ab neg - Zofran 4mg IV q6h prn for nausea - GI consult: remain NPO, increase pantoprazole to 40mg IV BID, EGD today, colon prep tonight/colonoscopy tomorrow - EGD: incidental polyp found and removed, inflammation in gastric antrum--biopsied for H.pylori test - F/U biopsy & colonoscopy results Hypothyroidism - Hold home levothyroxine 100mcg po qhs - Will start levothyroxine 75mcg IV daily - Plan to restart home levothyroxine 100mcg po once patient is no longer NPO status Tubular Adenoma - Colonoscopy with Dr. Green (GI) in July 2017 revealed tubular adenoma - GI consulted as noted above GERD - Hold home omeprazole 20mg qhs - Start IV protonix 40mg IV daily - Plan to restart home omeprazole once patient is no longer NPO status Prediabetes - Pt with hx of prediabetes with A1c of 6.0% on labs 02/17/20 - Will monitor BG levels on BMP daily Essential Tremor - Hold home propranolol 60mg qhs while NPO FENGI: NPO; NS + 20meq K IVF at a rate of 125 cc/hr DVT prophylaxis: SCDs, holding on anticoagulation due to concern for bleed Dispo: Med/surg tele Code: Full Code (2) Anemia: (3) Hypothyroidism: (4) Tubular adenoma: (5) GERD (gastroesophageal reflux disease): (6) Prediabetes: (7) Essential tremor: Admission and Anticipated Discharge Date Admission Date: February 28, 2020 Supervising Physician Co-Signing Physician Notes I personally examined the patient and verified all brandon points of history and exam, discussed case, and agree with decision making with Dr Salinas. feeling bettetr. no lightheaded no orthostasis. also no further bleeding. EGD was negative vitals noted nad heent nc at mmm breathing unlabored no accessory muscles good effort skin no rashes no pallor or icterus abd soft nd nt no guarding no rebound GI bleeding and subsequent acute blood loss anemia - hemodynamically stable; EGD negative, colo tomorrow. follow clinically otherwise as above Subjective Patient seen at bedside this AM. She reports feeling "not too bad". Mostly similar to yesterday. She reports having a bowel movement this morning with blood in it, about the same amount as the others as well as loose stool in general. Seen again at bedside in the afternoon. This time she reports having just had a BM and there was no blood in it. Had EGD done earlier and is feeling well. Denies dizziness, headache, abdominal pain, CP, palpitations, SOB, cough, nausea, vomiting, diarrhea. Review of Systems Review of Systems: CONSTITUTIONAL: + fatigue. Denies fever/chills. RESPIRATORY: Denies SOB or cough. CV: Denies chest pain, palpitations, edema. GI: + rectal bleeding. Denies abdominal pain, nausea, or vomiting. NEUROLOGICAL: Denies headache, lightheadedness, or dizziness. Physical Exam Physical Exam: GENERAL: No acute distress. Well developed and well nourished. Vital signs reviewed as above. A/O x3. EYES: PERRLA. EOMI. Conjunctival pallor bilaterally. HENT: Slightly dry mucous membranes. No pharyngeal erythema or exudates. RESPIRATORY: Clear to auscultation bilaterally. No wheezing, rales, or rhonchi. CARDIOVASCULAR: Regular rate and rhythm. No murmurs. ABDOMEN: Soft, non-tender and non-distended. No palpable masses. Normal bowel sounds. Rectal exam deferred as patient had just had rectal exam completed by ED physician. EXTREMITIES: No edema. Non-tender. SKIN: Warm, dry. No rashes or lesions. NEUROLOGIC: A/O x3. No focal neurological deficits. CN II-XII grossly intact, but not individually tested. PSYCHIATRIC: Cooperative. Appropriate mood. Flat affect. Results & Data Results & Data ([facility]) Vital Signs (Past 12 Hours) Vital Signs Temp Pulse Pulse Resp BP BP Pulse Ox 02/29/20 08:01 36.6 C 98 H 18 105/67 98 02/29/20 07:48 71 02/29/20 03:20 36.8 C 56 L 18 114/72 96 02/29/20 00:20 37.1 C 58 L 16 108/73 98 02/28/20 23:40 64 Resident Activity Tracking Resident Involvement: Resident Care Provided Care Provided: Adult Hospital Medicine
--- NOTE | 2020-02-29 10:01 | Gastrointestinal Consultation ---
Date of Consultation February 29, 2020 Assessment & Plan (1) Acute blood loss anemia: Differential diagnoses include: PUD vs AVM vs diverticular bleed vs malignancy vs hemorrhoids vs other. 1. Remain NPO status for now. 2. Increase Pantoprazole to 40 mg IV BID. 3. EGD today with Dr. Bernard for further evaluation. 4. Additional recommendations, including need to sooner colonoscopy (routinely due 07/21) pending results of testing. Thank you for allowing us to participate in the care of this pleasant patient. If you have any questions or concerns, please do not hesitate to contact us at [phone] or [phone]. Supervising Physician Co-Signing Physician Notes I personally evaluated the patient and agree with the findings as documented by HAYLIE Bauman Exam: abd: soft, nt, nd proceed with EGD to further evaluate today. will need colonoscopy if negative. History of Present Illness Reason for Consultation: GI bleed Requesting Physician: Dr. Martinez Attending Physician: Lux Logan DO History of Present Illness Ana Rivera is a pleasant 64 year-old female with a history of colon polyps (dx 2018), GERD, hypothyroidism, osteopenia, essential tremor and prediabetes admitted with rectal bleeding which began suddenly two days ago. She states she was passing dark, red bloody stools. She is uncertain if the blood was on or mixed in the stool but she became concerned Saturday morning after she passed a bowel movement "with a lot of blood" mixed with some softly formed to loose stool. She denies any painful bowel movements of bleeding independent of bms. States she did have mild self limited nausea yesterday but no n/v today, hematemesis or abdominal pain. No anal lumps noted. She states she did pass some blood this morning. Denies any SOB, BOWER, chest pain, palpitations, l ightheadedness, or syncope. No associated arthralgias, myalgias, skin rashes or fatigue. She does have a history of occasional NSAID use no tobacco or heavy alcohol use. Family history is negative for GI malignancy and IBD. Review of laboratory testing and imaging as follows: H&H on 02/16 were normal at 13.6/41.6. On admission, she was noted to have a H&H of 11.7/35.9 and she subsequently dropped to 9.6/29.[address] angio abdomen was unremarkable with the exception of a 5.4 indeterminate splenic mass. Renal panel is normal. She is NPO and has been placed on Protonix 40 mg IV daily. Allergies Allergy/AdvReac Type Severity Reaction Status Date / Time amoxicillin Allergy Severe .swelling Verified 02/28/20 09:29 Sulfa (Sulfonamide Allergy Mild SICK IN Verified 02/28/20 07:46 Antibiotics) THE STOMACH benzocaine Allergy Unknown TOPICAL Verified 02/28/20 07:46 BENZOCAINE>SKIN REACTION Home Medications Home Medications Medication Instructions Recorded Confirmed Type cholecalciferol (vitamin D3) 25 mcg PO HS #0 07/19/17 02/28/20 History [Vitamin D3] multivitamin 1 tab PO HS #0 tab 07/19/17 02/28/20 History ibuprofen [Advil Liqui-Gel] 400 mg PO Q6H PRN 02/28/20 02/28/20 History levothyroxine 100 mcg PO HS 02/28/20 02/28/20 History omeprazole 20 mg PO HS 02/28/20 02/28/20 History propranolol 60 mg PO HS 02/28/20 02/28/20 History Patient History Medical History Essential tremor GERD (gastroesophageal reflux disease) Hypothyroidism Osteopenia Prediabetes Tubular adenoma Surgical History H/O colonoscopy with polypectomy (07/2017) Family History Father Myocardial infarction Denies family history of Ovarian cancer Prostate cancer Deep vein thrombosis Depression Breast cancer Lung cancer COPD (chronic obstructive pulmonary disease) Colorectal cancer Social History Smoking Status: Never smoker Second Hand Exposure: No; Do You Dip or Chew Tobacco: No; Hx Alcohol Use: Yes Alcohol type: wine Alcohol Intake Frequency: Monthly or Less Hx Substance Use: No Preferred Language: Scottish Communication Ability: Effective Visual Impairment: No Limitations Hearing Ability: Normal It Project Lead Required: No Beliefs That Will Affect Care: None marital status: Current Living Situation: Spouse and Family Current Living Situation Comment: Spouse and son current occupational status: employed current occupation: [employer] Other Information That Helps Us Care for You: No Feels Safe at Home: Yes Safety Concerns: Feels Safe At This Time Childhood Exposure to Second-Hand Smoke: No caffeine: Yes during the past year weight has: remained stable Dental Care, Regularly: Yes Physical Activity Frequency: Daily Physical Activity Frequency Comment: walk Seatbelt Use: always Sunscreen Use: Yes Review of Systems Review of Systems: All systems reviewed & are unremarkable except as noted in HPI & below Physical Exam Constitutional: WD/WN, vitals as above Eyes: EOM intact bilaterally Neck: normal appearance Respiratory: normal respiratory effort, lungs clear to auscultation Cardiovascular: Rate/Rhythm: regular rate and regular rhythm Heart Sounds: no gallop and no murmur Gastrointestinal (Abdomen): normal bowel sounds, soft, nontender, no hepatosplenomegaly Inspection/Auscultation: abdomen not distended Musculoskeletal: Extremities: no cyanosis no lower extremity edema Skin: no rashes, warm and dry Neurologic: moves all extremities Psychiatric: A+Ox3, euthymic affect Results & Data ([facility]) Vital Signs (Past 12 Hours) Vital Signs Temp Pulse Pulse Resp BP BP Pulse Ox 02/29/20 08:01 36.6 C 98 H 18 105/67 98 02/29/20 07:48 71 02/29/20 03:20 36.8 C 56 L 18 114/72 96 02/29/20 00:20 37.1 C 58 L 16 108/73 98 02/28/20 23:40 64 Laboratory Results Abnormal lab results 02/28/20 02/28/20 02/29/20 Range/Units 14:09 19:41 06:22 RBC 3.22 L (4.2-5.4) M/uL Hgb 11.9 L 10.5 L 9.6 L (12.0-16.0) g/dL Hct 36.8 L 33.0 L 29.6 L (37-47) % RDW Std Deviation 48.8 H (36.4-46.3) fL [place] # (Auto) 0.70 H (0.11-0.59) K/uL Chloride (98-107) mmol/L Calcium (8.5-10.1) mg/dl 02/29/20 Range/Units 06:22 RBC (4.2-5.4) M/uL Hgb (12.0-16.0) g/dL Hct (37-47) % RDW Std Deviation (36.4-46.3) fL [place] # (Auto) (0.11-0.59) K/uL Chloride 115 H (98-107) mmol/L Calcium 8.0 L (8.5-10.1) mg/dl PG Care Time/CCT Total # of Minutes Spent Total Time Spent with Patient: Total time spent is greater than 50% in coordination of care (as documented) at patient's floor/unit and/or counseling patient: Coding Level of Care Code 50531 Inpt Consult Level 4 Diagnoses Acute blood loss anemia D62
[2020-02-29] MEDS ORDERED: PANTOprazole 40 MG in SYRINGE 0 ML IV SCH (11:00)
--- NOTE | 2020-02-29 14:45 | Anesthesiology Consultation ---
Date of Service February 29, 2020 Assessment & Plan (1) Encounter for pre-operative examination: Chart Review Chart Review: Acceptable Risk for Surgery and Patient NOT seen in Pre Admission Testing Consults Requested none History Surgery Operation Date: 02/29/20 18:00 Proposed Procedures p Esophagogastroduodenoscopy Dr. Marco Antonio Bernard MD Height/Weight Height: 5 ft 8 in Weight: 86.636 kg Allergies Allergy/AdvReac Type Severity Reaction Status Date / Time amoxicillin Allergy Severe .swelling Verified 02/28/20 09:29 Sulfa (Sulfonamide Allergy Mild SICK IN Verified 02/28/20 07:46 Antibiotics) THE STOMACH benzocaine Allergy Unknown TOPICAL Verified 02/28/20 07:46 BENZOCAINE>SKIN REACTION Medications Home Medications Medication Instructions Recorded Confirmed Last Taken cholecalciferol (vitamin D3) 25 mcg PO HS #0 07/19/17 02/28/20 02/27/20 [Vitamin D3] multivitamin 1 tab PO HS #0 tab 07/19/17 02/28/20 02/27/20 ibuprofen [Advil Liqui-Gel] 400 mg PO Q6H PRN 02/28/20 02/28/20 02/28/20 02:30 levothyroxine 100 mcg PO HS 02/28/20 02/28/20 02/27/20 omeprazole 20 mg PO HS 02/28/20 02/28/20 02/27/20 propranolol 60 mg PO HS 02/28/20 02/28/20 02/27/20 Active Medications Generic Name Dose Route Start Last Admin Trade Name Freq PRN Reason Stop Dose Admin Levothyroxine Sodium 75 mcg/ 3.75 mls @ 2 mls/min 02/29/20 09:00 02/29/20 09:06 Syringe IV 03/30/20 08:59 2 mls/min DAILY@0900 PERI Administration Potassium Chloride/Sodium Chloride 20 meq in 1,000 mls @ 125 mls/hr 02/28/20 13:00 02/29/20 05:25 Normal Saline W/20 Meq Kcl IV 03/29/20 12:59 125 mls/hr .Q8H PERI Administration NPO Date Last Intake of Fluids: 02/27/20 Time Last Intake of Fluids: 19:30 Date Last Intake of Solids: 02/27/20 Time Last Intake of Solids: 19:30 Past Medical History Medical History Essential tremor GERD (gastroesophageal reflux disease) Hypothyroidism Osteopenia Prediabetes Tubular adenoma Exercise / Class Metabolic Activity II 4-5 Yardwork/Stairs/Walk up hill Past Family History Family History Father Myocardial infarction Denies family history of Ovarian cancer Prostate cancer Deep vein thrombosis Depression Breast cancer Lung cancer COPD (chronic obstructive pulmonary disease) Colorectal cancer Past Surgical History Surgical History H/O colonoscopy with polypectomy (07/2017) Past Anesthesia History No Hx of Anesthesia Complications and No Family Hx of Anesthesia Complications History of PONV No Hx of PONV and No Hx of Motion Sickness Social History Smoking Status: Never smoker Do You Dip or Chew Tobacco: No Hx Alcohol Use: Yes Alcohol type: wine alcohol intake frequency: holidays/special occasions only Hx Substance Use: No Physical Exam Vital Signs Last Vital Signs Temp 37.3 C 02/29/20 14:38 Pulse 88 02/29/20 14:38 Resp 18 02/29/20 14:38 BP 153/89 H 02/29/20 14:38 Pulse Ox 97 02/29/20 14:38 Testing Laboratory Results 02/29/20 06:22 02/29/20 06:22 PT 11.0 Seconds (9.0-12.0) 02/28/20 08:05 INR 1.0 (0.9-1.1) 02/28/20 08:05 Blood Type O Positive 02/28/20 07:59 Antibody Screen NEGATIVE 02/28/20 07:59 Electrocardiogram Date: 02/28/20 Findings: + NSR @
[2020-02-29] MEDS ORDERED: LIDOCAINE HCL 2% 2 ML VIAL/AMP(20MG/ML) INFIL ONE (15:14)
[2020-02-29] MEDS ORDERED: PROPOFOL IV EMULSION 10 MG/ML 20 ML VIAL IV ONE (15:14)
--- NOTE | 2020-02-29 15:20 | GI REPORT ---
Patient Name: Ana Rivera Procedure Date: 02/29/2020 2:45 PM Date of : 1955 Admit Type: Inpatient Age: 64 Gender: Female Attending MD: Michael Bernard MD Procedure: Upper GI endoscopy Providers: Michael Bernard MD Referring MD: Lux Logan Indications: Acute post hemorrhagic anemia, Hematochezia Medicines: Monitored Anesthesia Care Complications: No immediate complications. Estimated blood loss: None. Estimated Blood Loss: Estimated blood loss: none. Procedure: Pre-Anesthesia Assessment: - Prior Anticoagulants: The patient has taken no previous anticoagulant or antiplatelet agents. - ASA Grade Assessment: III - A patient with severe systemic disease. After obtaining informed consent, the endoscope was passed under direct vision. Throughout the procedure, the patient's blood pressure, pulse, and oxygen saturations were monitored continuously. The scope was introduced through the mouth, and advanced to the second part of duodenum. The upper GI endoscopy was accomplished without difficulty. The patient tolerated the procedure well. Findings: The examined esophagus was normal. A single 4 mm sessile polyp with no stigmata of recent bleeding was found in the stomach. The polyp was removed with a cold snare. Resection and retrieval were complete. Estimated blood loss: none. Diffuse moderate inflammation characterized by erythema was found in the gastric antrum. Biopsies were taken with a cold forceps for Helicobacter pylori testing. Estimated blood loss: none. The duodenal bulb and second portion of the duodenum were normal. No evidence of blood nor bleeding throughout entire exam. Impression: - Normal esophagus. - A single gastric polyp. Resected and retrieved. - Gastritis. Biopsied. - Normal duodenal bulb and second portion of the duodenum. Recommendation: - [facility] care. - Clear liquid diet today. - Await pathology results. -colonoscopy tomorrow to further evaluate GI bleeding and anemia Michael Bernard MD 02/29/2020 3:19:56 PM This report has been signed electronically. Note Initiated On: 02/29/2020 2:45 PM Number of Addenda: 0 I attest to the content of the Intraoperative Record and orders documented therein, exceptions below {[id number]}
--- NOTE | 2020-02-29 15:22 | Procedure Note ---
Procedure Note Date of Service February 29, 2020 GI brief procedure note: EGD: no bleeding, polyp removed, gastritis biopsied. recs: clear liquid diet, prep with golytely tonight colonoscopy tomorrow to further evaluate f/u path results Michael Bernard MD Gastroenterology Coding
--- NOTE | 2020-02-29 15:46 | Anesthesiology Progress Note ---
Date of Service February 29, 2020 Anesthesia Post Procedure Vital Signs Vital Signs: Temp Pulse Pulse Pulse Resp BP BP 02/29/20 15:30 71 18 109/61 02/29/20 15:16 81 16 93/54 L 02/29/20 14:38 99.1 F 88 18 153/89 H 02/29/20 14:20 89 02/29/20 11:15 98.4 F 69 19 120/76 02/29/20 08:01 97.9 F 98 H 18 105/67 02/29/20 07:48 71 02/29/20 03:20 98.2 F 56 L 18 114/72 02/29/20 00:20 98.8 F 58 L 16 108/73 02/28/20 23:40 64 02/28/20 19:22 98.1 F 73 14 114/79 02/28/20 17:09 68 Pulse Ox 02/29/20 15:30 95 02/29/20 15:16 95 02/29/20 14:38 97 02/29/20 14:20 02/29/20 11:15 95 02/29/20 08:01 98 02/29/20 07:48 02/29/20 03:20 96 02/29/20 00:20 98 02/28/20 23:40 02/28/20 19:22 92 02/28/20 17:09 Transfer of Care Handoff Completed per policy Notes Mental Status: alert / awake / arousable and participated in evaluation Patient Amnestic to Procedure: Yes Nausea / Vomiting: adequately controlled Pain: adequately controlled Airway Patency, RR, SpO2: stable & adequate BP & HR: stable & adequate Hydration State: stable & adequate Anesthetic Complications: no major complications apparent and Pt Satisfied with anesthetic care
[2020-02-29] MEDS ORDERED: METOCLOPRAMIDE HCL INJ 5 MG/ML 2 ML VIAL IV PRN (18:45)
[2020-02-29] MEDS ORDERED: ALUMINUM/MAGNESIUM/SIMETH (MAALOX MAX) 30 ML UDC PO PRN (18:45)
[2020-02-29] MEDS ORDERED: PROMETHAZINE HCL 6.25 MG in SODIUM CHLORIDE 0.9% 50 ML IV PRN (18:45)
[2020-02-29] MEDS: LAVAGE SOLUTION 4000ML PO SCH (18:45)
--- NOTE | 2020-02-29 18:56 | Billing Data ---
Date of Service February 29, 2020 Coding Level of Care Code 33644 Subseq Obs Care Lvl 3
[2020-02-29] MEDS: PANTOprazole 40 MG in SYRINGE 0 ML IV SCH (21:15)
[2020-03-01] MEDS: NSS + 20MEQ KCL 20 MEQ/1,000 ML BAG IV SCH ×3 (00:59→12:52)
[2020-03-01 06:16] LABS: Basophils # (auto) 0.03 K/uL (0-0.2); Basophils % (auto) 0.5 %; Eosinophils # (auto) 0.15 K/uL (0-0.5); Eosinophils % (auto) 2.7 %; Hemoglobin 9.8 g/dL (12.0-16.0); Immature Granulocytes # (auto) 0.01 K/uL (0.00-0.02); Immature Granulocytes % (auto) 0.2 %; Lymphocytes % (auto) 33.9 %; Mean Corpuscular Hemoglobin 30.1 pg (25-34); Mean Corpuscular Hgb Conc 32.7 g/dL (32-36); Monocytes # (auto) 0.74 K/uL (0.11-0.59); Monocytes % (auto) 13.2 %; Neutrophils # (auto) 2.78 K/uL (1.4-6.5); Neutrophils % (auto) 49.5 %; Platelet Count 191 K/uL (130-400); RDW Coefficient of Variation 14.6 % (11.5-14.5); RDW Standard Deviation 49.4 fL (36.4-46.3); Red Blood Count 3.26 M/uL (4.2-5.4); White Blood Count 5.61 K/uL (4.8-10.8)
[2020-03-01] MEDS: LAVAGE SOLUTION 4000ML PO SCH (06:31)
[2020-03-01] MEDS: PANTOprazole 40 MG in SYRINGE 0 ML IV SCH ×2 (08:43→20:34)
[2020-03-01] MEDS: LEVOTHYROXINE SODIUM 75 MCG in SYRINGE 0 ML IV SCH (09:12)
--- NOTE | 2020-03-01 09:19 | Hospitalist Progress Note ---
Date of Service March 01, 2020 Assessment & Plan (1) Bright red rectal bleeding: Patient is a 64 yo female with PMHx of hypothyroidism, GERD, pre-DM, essential tremor, and tubular adenoma (diagnosed on colonoscopy July 2017 with plan for repeat colonoscopy July 2020). She presented to the ED on the morning of 02/27 with complaint of bright red blood per rectum since the night prior. Pt has reported some fatigue but otherwise denies abdominal pain, fever, n/v, lightheadedness/dizziness, CP, and SOB. ED course: EKG, CT abdomen, labs, NSS 1L bolus x1, protonix 80mg IV, Zofran 4mg IV Bright red rectal bleeding Acute blood loss anemia - Differential includes lower GI bleed, internal hemorrhoid rupture, upper GI bleed, AV fistula malformation, infectious colitis - CT abdomen in ED showed leos-colonic diverticulosis w/o evidence of acute diverticulitis and indeterminate 5.4 cm splenic mass but otherwise no acute findings. - Admitted patient to tele - Initiate NPO status - NS + 20meq K IVF at a rate of 125 cc/hr - Pt with Hgb of 11.7 on admission (Hgb 12 days ago was 13.6)--Hgb today 9.8 - Will monitor H/H q6h, transfuse as needed - Pt type and screened in the ED --> O+/Ab neg - Zofran 4mg IV q6h prn for nausea - EGD: incidental polyp found and removed, inflammation in gastric antrum--biopsied for H.pylori test - Colonoscopy: Multiple small and large-mouthed diverticula, some with clots, and evidence of recent bleeding were found in the sigmoid colon, descending colon, transverse colon and ascending colon. Clipped for hemostasis. - Clear liquid diet today - Follow H/H, transfuse Hgb < 7 Hypothyroidism - Hold home levothyroxine 100mcg po qhs - Will start levothyroxine 75mcg IV daily - Plan to restart home levothyroxine 100mcg po once patient is no longer NPO status Tubular Adenoma - Colonoscopy with Dr. Green (GI) in July 2017 revealed tubular adenoma - GI consulted as noted above GERD - Hold home omeprazole 20mg qhs - Start IV protonix 40mg IV daily - Plan to restart home omeprazole once patient is no longer NPO status Prediabetes - Pt with hx of prediabetes with A1c of 6.0% on labs 02/17/20 - Will monitor BG levels on BMP daily Essential Tremor - Hold home propranolol 60mg qhs while NPO FENGI: NPO; NS + 20meq K IVF at a rate of 125 cc/hr DVT prophylaxis: SCDs, holding on anticoagulation due to concern for bleed Dispo: Med/surg tele Code: Full Code (2) Anemia: (3) Hypothyroidism: (4) Tubular adenoma: (5) GERD (gastroesophageal reflux disease): (6) Prediabetes: (7) Essential tremor: Admission and Anticipated Discharge Date Admission Date: February 28, 2020 Supervising Physician Co-Signing Physician Notes I personally examined the patient and verified all brandon points of history and exam, discussed case, and agree with decision making with Dr Salinas. seen post colo. doing ok. vitals noted nad heent nc at mmm breathing unlabored no accessory muscles good effort skin no rashes no pallor or icterus GI bleeding and subsequent acute blood loss anemia - hemodynamically stable; EGD negative, colo confirms expected findings c/w diverticular bleed - but with some blood still noted - ongoing observation at least into tomorrow otherwise as above Subjective Patient seen at bedside this AM. She reports feeling "not too bad". Mostly similar to yesterday. She reports having a bowel movement last night with blood in it. She will have colonoscopy later today. Denies dizziness, headache, abdominal pain, CP, palpitations, SOB, cough, nausea, vomiting, diarrhea. Review of Systems Review of Systems: CONSTITUTIONAL: + fatigue. Denies fever/chills. RESPIRATORY: Denies SOB or cough. CV: Denies chest pain, palpitations, edema. GI: + rectal bleeding. Denies abdominal pain, nausea, or vomiting. NEUROLOGICAL: Denies headache, lightheadedness, or dizziness. Physical Exam Physical Exam: GENERAL: No acute distress. Well developed and well nourished. Vital signs reviewed as above. A/O x3. RESPIRATORY: Clear to auscultation bilaterally. No wheezing, rales, or rhonchi. CARDIOVASCULAR: Regular rate and rhythm. No murmurs. ABDOMEN: Soft, non-tender and non-distended. No palpable masses. Normal bowel sounds. SKIN: Warm, dry. No rashes or lesions. PSYCHIATRIC: Cooperative. Appropriate mood. Flat affect. Results & Data Results & Data ([facility]) Vital Signs (Past 12 Hours) Vital Signs Temp Pulse Pulse Resp BP BP Pulse Ox 03/01/20 08:00 36.5 C 55 L 20 113/74 96 03/01/20 04:17 36.4 C L 65 17 118/71 96 02/29/20 23:43 36.6 C 71 17 125/78 95 02/29/20 23:00 85 Resident Activity Tracking Resident Involvement: Resident Care Provided Care Provided: Adult Hospital Medicine
--- NOTE | 2020-03-01 09:47 | History & Physical Bridge Note ---
Date of Service March 01, 2020 History & Physical Bridge Note I have examined the patient, reviewed the History & Physical and in the interval since the performance of the History & Physical I have noted the following changes of clinical significance: Patient reports she consumed just over 1/2 of the bowel preparation and is still passing formed stools but is still working on the preparation. PE: A&Ox3. RRR. Lungs CTA bilaterally. Abdomen soft, nontender, normal bowel sounds. A/P: Rectal bleeding. Proceed with colonoscopy with Dr. Bernard today.
--- NOTE | 2020-03-01 10:11 | Anesthesiology Consultation ---
Date of Service March 01, 2020 Assessment & Plan (1) Encounter for pre-operative examination: Chart Review Chart Review: Acceptable Risk for Surgery History Surgery Operation Date: 02/29/20 18:00 Proposed Procedures p Esophagogastroduodenoscopy Dr. Marco Antonio Bernard MD Operation Date: 03/01/20 17:30 Proposed Procedures p Colonoscopy Dr. Marco Antonio Bernard MD Height/Weight Height: 5 ft 8 in Weight: 86 kg Allergies Allergy/AdvReac Type Severity Reaction Status Date / Time amoxicillin Allergy Severe .swelling Verified 02/28/20 09:29 Sulfa (Sulfonamide Allergy Mild SICK IN Verified 02/28/20 07:46 Antibiotics) THE STOMACH benzocaine Allergy Unknown TOPICAL Verified 02/28/20 07:46 BENZOCAINE>SKIN REACTION Medications Home Medications Medication Instructions Recorded Confirmed Last Taken cholecalciferol (vitamin D3) 25 mcg PO HS #0 07/19/17 02/28/20 02/27/20 [Vitamin D3] multivitamin 1 tab PO HS #0 tab 07/19/17 02/28/20 02/27/20 ibuprofen [Advil Liqui-Gel] 400 mg PO Q6H PRN 02/28/20 02/28/20 02/28/20 02:30 levothyroxine 100 mcg PO HS 02/28/20 02/28/20 02/27/20 omeprazole 20 mg PO HS 02/28/20 02/28/20 02/27/20 propranolol 60 mg PO HS 02/28/20 02/28/20 02/27/20 Active Medications Generic Name Dose Route Start Last Admin Trade Name Freq PRN Reason Stop Dose Admin Levothyroxine Sodium 75 mcg/ 3.75 mls @ 2 mls/min 02/29/20 09:00 03/01/20 09:12 Syringe IV 03/30/20 08:59 2 mls/min DAILY@0900 PERI Administration Potassium Chloride/Sodium Chloride 20 meq in 1,000 mls @ 125 mls/hr 02/28/20 13:00 03/01/20 09:49 Normal Saline W/20 Meq Kcl IV 03/29/20 12:59 125 mls/hr .Q8H PERI Administration Pantoprazole Sodium 40 mg/ 10 mls @ 5 mls/min 02/29/20 21:00 03/01/20 08:43 Syringe IV 03/30/20 20:59 5 mls/min BID PERI Administration NPO Date Last Intake of Fluids: 02/27/20 Time Last Intake of Fluids: 19:30 Date Last Intake of Solids: 02/27/20 Time Last Intake of Solids: 19:30 Past Medical History Medical History Essential tremor GERD (gastroesophageal reflux disease) Hypothyroidism Osteopenia Prediabetes Tubular adenoma Past Family History Family History Father Myocardial infarction Denies family history of Ovarian cancer Prostate cancer Deep vein thrombosis Depression Breast cancer Lung cancer COPD (chronic obstructive pulmonary disease) Colorectal cancer Past Surgical History Surgical History H/O colonoscopy with polypectomy (07/2017) Social History Smoking Status: Never smoker Do You Dip or Chew Tobacco: No Hx Alcohol Use: Yes Alcohol type: wine alcohol intake frequency: holidays/special occasions only Hx Substance Use: No Physical Exam Vital Signs Last Vital Signs Temp 36.5 C 03/01/20 08:00 Pulse 55 L 03/01/20 08:00 Resp 20 03/01/20 08:00 BP 113/74 03/01/20 08:00 Pulse Ox 96 03/01/20 08:00 Testing Laboratory Results 03/01/20 05:57 02/29/20 06:22 PT 11.0 Seconds (9.0-12.0) 02/28/20 08:05 INR 1.0 (0.9-1.1) 02/28/20 08:05 Blood Type O Positive 02/28/20 07:59 Antibody Screen NEGATIVE 02/28/20 07:59
[2020-03-01] MEDS ORDERED: PROPOFOL IV EMULSION 10 MG/ML 20 ML VIAL IV ONE ×2 (15:28→15:52)
[2020-03-01] MEDS ORDERED: LIDOCAINE HCL 2% 2 ML VIAL/AMP(20MG/ML) INFIL ONE (15:29)
[2020-03-01] MEDS ORDERED: PHENYLEPHRINE 100MCG/ML 5ML SYR ONE (15:52)
--- NOTE | 2020-03-01 15:59 | GI REPORT ---
Patient Name: Ana Rivera Procedure Date: 03/01/2020 3:19 PM Date of : 1955 Admit Type: Inpatient Age: 64 Gender: Female Attending MD: Michael Bernard MD Procedure: Colonoscopy Providers: Michael Bernard MD Referring MD: Lux Logan Indications: Hematochezia Medicines: Monitored Anesthesia Care Complications: No immediate complications. Estimated blood loss: None. Estimated Blood Loss: Estimated blood loss: none. Procedure: Pre-Anesthesia Assessment: - Prior Anticoagulants: The patient has taken no previous anticoagulant or antiplatelet agents. - ASA Grade Assessment: III - A patient with severe systemic disease. After I obtained informed consent, the scope was passed under direct vision. Throughout the procedure, the patient's blood pressure, pulse, and oxygen saturations were monitored continuously. The scope was introduced through the anus and advanced to the cecum, identified by appendiceal orifice and ileocecal valve. The colonoscopy was performed without difficulty. The patient tolerated the procedure well. The quality of the bowel preparation was fair. Findings: Multiple small and large-mouthed diverticula, some with clots, and evidence of recent bleeding were found in the sigmoid colon, descending colon, transverse colon and ascending colon. For hemostasis, six hemostatic clips were successfully placed to close multiple diverticula thought to be the sources of her GI bleeding, particularly in the right colon. There was no bleeding at the end of the procedure. maroon blood was noted particularly in the right colon. Red blood was found in the ascending colon, transverse and descending colon. Impression: - Preparation of the colon was fair. - Diverticulosis in the sigmoid colon, in the descending colon, in the transverse colon and in the ascending colon. Clips were placed. - Blood in the ascending colon. - No specimens collected. Recommendation: - Return patient to [facility] for ongoing care. - Clear liquid diet today. -strict avoidance of NSAIDS going forward -supportive care, trend H/H, transfuse hgb <7 Michael Bernard MD 03/01/2020 3:59:13 PM This report has been signed electronically. Note Initiated On: 03/01/2020 3:19 PM Number of Addenda: 0 I attest to the content of the Intraoperative Record and orders documented therein, exceptions below {[id number]}
--- NOTE | 2020-03-01 16:01 | Procedure Note ---
Procedure Note Date of Service March 01, 2020 GI brief procedure note: colonoscopy findings: diverticular bleeding appeared to be worse in the right colon, multiple clips placed to close multiple diverticula, no active bleeding at the end of the procedure. maroon/red blood noted particularly in the right colon. recs: --strict avoidance of NSAIDS as this can precipitate recurrent diverticular bleeding --clear liquid diet today, advance tomorrow if stable --trend H/H, transfuse prn hgb <7 --supportive care Michael Bernard MD Gastroenterology Coding
--- NOTE | 2020-03-01 16:03 | Anesthesiology Progress Note ---
Date of Service March 01, 2020 Anesthesia Post Procedure Vital Signs Vital Signs: Temp Pulse Pulse Pulse Resp BP BP 03/01/20 14:27 37.2 C 72 18 146/86 H 03/01/20 13:57 36 C L 82 12 102/55 L 03/01/20 12:00 36.6 C 65 18 119/77 03/01/20 08:00 36.5 C 55 L 20 113/74 03/01/20 04:17 36.4 C L 65 17 118/71 02/29/20 23:43 36.6 C 71 17 125/78 02/29/20 23:00 85 02/29/20 19:38 36.8 C 90 18 122/81 Pulse Ox 03/01/20 14:27 97 03/01/20 13:57 96 03/01/20 12:00 93 03/01/20 08:00 96 03/01/20 04:17 96 02/29/20 23:43 95 02/29/20 23:00 02/29/20 19:38 95 Transfer of Care Handoff Completed per policy Notes Mental Status: alert / awake / arousable Patient Amnestic to Procedure: Yes Nausea / Vomiting: adequately controlled Pain: adequately controlled Airway Patency, RR, SpO2: stable & adequate BP & HR: stable & adequate Hydration State: stable & adequate Anesthetic Complications: no major complications apparent and Pt Satisfied with anesthetic care Notes: The patient is awake and stable in recovery. Her vital signs are stable.
--- NOTE | 2020-03-01 19:49 | Billing Data ---
Date of Service March 01, 2020 Coding Level of Care Code 42960 Subseq Hosp Care Lvl 3
[2020-03-02 06:35] LABS: Basophils # (auto) 0.03 K/uL (0-0.2); Basophils % (auto) 0.5 %; Eosinophils # (auto) 0.17 K/uL (0-0.5); Hematocrit (blood only) 30.2 % (37-47); Hemoglobin 9.5 g/dL (12.0-16.0); Immature Granulocytes # (auto) 0.01 K/uL (0.00-0.02); Immature Granulocytes % (auto) 0.2 %; Lymphocytes # (auto) 2.02 K/uL (1.2-3.4); Lymphocytes % (auto) 35.8 %; Mean Corpuscular Hemoglobin 29.2 pg (25-34); Mean Corpuscular Hgb Conc 31.5 g/dL (32-36); Mean Corpuscular Volume 92.9 fL (80-100); Mean Platelet Volume 10.6 fL (7.4-10.4); Monocytes # (auto) 0.69 K/uL (0.11-0.59); Monocytes % (auto) 12.2 %; Neutrophils # (auto) 2.73 K/uL (1.4-6.5); Neutrophils % (auto) 48.3 %; Platelet Count 205 K/uL (130-400); RDW Coefficient of Variation 14.6 % (11.5-14.5); RDW Standard Deviation 49.7 fL (36.4-46.3); Red Blood Count 3.25 M/uL (4.2-5.4); White Blood Count 5.65 K/uL (4.8-10.8)
[2020-03-02 07:08] LABS: BUN Creatinine Ratio 7.9 (10-20); Calcium 8.1 mg/dl (8.5-10.1); Creatinine Clr Calc Pharmacy 70.8 ml/min; Est GFR (African American) 76.7; Est GFR (Non-African American) 66.2; Potassium 3.4 mmol/L (3.5-5.1)
[2020-03-02 07:35] VITALS: BP 99/63; PULSE 56; TEMP 97.9; O2SAT 95
[2020-03-02] MEDS ORDERED: PANTOprazole 40 MG TAB PO SCH (09:00)
--- NOTE | 2020-03-02 10:46 | Gastroenterology Progress Note ---
Date of Service March 02, 2020 Assessment & Plan (1) Acute blood loss anemia: S/P colonoscopy yesterday with findings of diverticular bleed. 1. Tolerating regular diet. 2. H&H is stable at this time. 3. Recommend outpatient follow up within 2 weeks of discharge. Admission and Anticipated Discharge Date Admission Date: March 01, 2020 Supervising Physician Co-Signing Physician Notes I agree with the findings as documented by HAYLIE Bauman Patient was discharged prior to my examining her, will need follow up in the office in 2 weeks as an outpatient. Subjective Patient reports feeling well today after colonoscopy yesterday with findings of diverticular bleeding. She is status post hemostasis with Endoclip placement. Denies any abdominal pain. Did pass some melanotic blood this morning but H&H remains stable at this time. Tolerating regular diet and desires discharge to home today. Review of Systems Review of Systems: All systems reviewed & are unremarkable except as noted in HPI & below Physical Exam Constitutional: WD/WN, vitals as above well developed and well nourished Eyes: EOM intact bilaterally Neck: normal visual inspection Respiratory: normal respiratory effort, lungs clear to auscultation Cardiovascular: Rate/Rhythm: regular rate and regular rhythm Gastrointestinal (Abdomen): normal bowel sounds, soft, nontender, no hepatosplenomegaly Skin: no rashes, warm and dry Psychiatric: A+Ox3, euthymic affect Results & Data Results & Data ([facility]) Vital Signs (Past 12 Hours) Vital Signs Temp Pulse Resp BP BP Pulse Ox 03/02/20 07:35 36.6 C 56 L 18 99/63 L 95 03/01/20 23:12 37.0 C 70 20 114/67 93 Laboratory Results Abnormal lab results 03/02/20 03/02/20 Range/Units 06:03 06:03 RBC 3.25 L (4.2-5.4) M/uL Hgb 9.5 L (12.0-16.0) g/dL Hct 30.2 L (37-47) % MCHC 31.5 L (32-36) g/dL RDW Std Deviation 49.7 H (36.4-46.3) fL RDW Coeff of [employer] 14.6 H (11.5-14.5) % MPV 10.6 H (7.4-10.4) fL [place] # (Auto) 0.69 H (0.11-0.59) K/uL Potassium 3.4 L D (3.5-5.1) mmol/L Chloride 112 H (98-107) mmol/L BUN/Creatinine Ratio 7.9 L (10-20) Calcium 8.1 L (8.5-10.1) mg/dl PG Care Time/CCT Total # of Minutes Spent Total Time Spent with Patient: Total time spent is greater than 50% in coordination of care (as documented) at patient's floor/unit and/or counseling patient: Coding Level of Care Code 23131 Subseq Hosp Care Lvl 3 Diagnoses Acute blood loss anemia D62
--- NOTE | 2020-03-02 15:55 | Discharge Summary ---
Date of Service March 02, 2020 Admission HPI Per Admitting Provider Mrs. Ana Rivera is a 64 yo female who presented to the ED this morning (02/28/2020) with complaint of bright red bleeding per rectum. Patient states that last night, after dinner, she went to the bathroom and had a bowel movement when she noticed bright red blood in the toilet. Patient has had 3 more bowel movements since that time, all of which have had a reportedly "significant" amount of blood in the toilet. She did take 2 Advil last night for some generalized muscle pain but patient notes that she does not usually take Advil; she is not on any other anticoagulants or antiplatelets. Patient denies abdom inal pain, fever, nausea, vomiting, lightheadedness, dizziness, SOB, or CP. She denies any recent abnormal or undercooked food intake. Pt denies any recent sick contacts. She denies a similar prior episode of rectal bleeding. Pt's PMHx includes tubular adenoma w/ colonoscopy July [address] Green; it was planned that she would have a repeat colonoscopy in Jul/Aug 2020. She also has GERD controlled with 20mg omeprazole, hypothyroidism controlled with 100mcg levothyroxine, essential tremor controlled with 60mg propranolol, and pre-DM. She has never been a tobacco smoker, drinks alcohol occasionally, and denies any other drug use. Patient is and lives at home with her . Admission Exam Per Admitting Provider GENERAL: No acute distress. Well developed and well nourished. Vital signs reviewed as above. A/O x3. EYES: PERRLA. EOMI. Conjunctival pallor bilaterally. HENT: Slightly dry mucous membranes. No pharyngeal erythema or exudates. RESPIRATORY: Clear to auscultation bilaterally. No wheezing, rales, or rhonchi. CARDIOVASCULAR: Regular rate and rhythm. No murmurs. ABDOMEN: Soft, non-tender and non-distended. No palpable masses. Normal bowel sounds. Rectal exam deferred as patient had just had rectal exam completed by ED physician. EXTREMITIES: No edema. Non-tender. SKIN: Warm, dry. No rashes or lesions. NEUROLOGIC: A/O x3. No focal neurological deficits. CN II-XII grossly intact, but not individually tested. PSYCHIATRIC: Cooperative. Appropriate mood. Flat affect. Principal Diagnosis Colonic diverticular bleeding Discharge Exam Constitutional WD/WN, vitals as above cooperative and comfortable; no acute distress Respiratory normal respiratory effort, lungs clear to auscultation no respiratory distress, no labored breathing and no cough Cardiovascular RRR, no murmur, no edema Heart Sounds: normal S1 and normal S2; no gallop, no murmur and no cardiac rub Gastrointestinal (Abdomen) normal bowel sounds, soft, nontender, no hepatosplenomegaly Skin no rashes, warm and dry Psychiatric A+Ox3, euthymic affect Discharge Data Allergies Allergy/AdvReac Type Severity Reaction Status Date / Time amoxicillin Allergy Severe .swelling Verified 02/28/20 09:29 Sulfa (Sulfonamide Allergy Mild SICK IN Verified 02/28/20 07:46 Antibiotics) THE STOMACH benzocaine Allergy Unknown TOPICAL Verified 02/28/20 07:46 BENZOCAINE>SKIN REACTION Consultations 02/28/20 09:52 ED Decision to Admit Stat 02/28/20 11:00 Consult Gastroenterology Stat Procedures Performed Operation Date: 02/29/20 18:00 Actual Procedures p EGD Biopsy Cytology - Michael Bernard MD Operation Date: 03/01/20 17:30 Actual Procedures p Colonoscopy Hemostasis - Michael Bernard MD Ordered Studies 02/28/20 07:43 CT angio abdomen pelvis w con Stat Hospital Course (1) Bright red rectal bleeding: Patient is a 64 yo female with PMHx of hypothyroidism, GERD, pre-DM, essential tremor, and tubular adenoma (diagnosed on colonoscopy July 2017 with plan for repeat colonoscopy July 2020). She presented to the ED on the morning of 02/27 with complaint of bright red blood per rectum since the night prior. Pt reported some fatigue but otherwise denied abdominal pain, fever, n/v, lightheadedness/dizziness, CP, and SOB. ED course: EKG, CT abdomen, labs, NSS 1L bolus x1, protonix 80mg IV, Zofran 4mg IV Bright red rectal bleeding Acute blood loss anemia - Differential included lower GI bleed, internal hemorrhoid rupture, upper GI bleed, AV fistula malformation, infectious colitis - CT abdomen in ED showed leos-colonic diverticulosis w/o evidence of acute diverticulitis and indeterminate 5.4 cm splenic mass but otherwise no acute findings. - Admitted patient to tele - Initiated NPO status - NS + 20meq K IVF at a rate of 125 cc/hr - Pt with Hgb of 11.7 on admission (Hgb 12 days ago was 13.6)--Hgb today 9.5 - Pt type and screened in the ED --> O+/Ab neg - Zofran 4mg IV q6h prn for nausea - EGD: incidental polyp found and removed, inflammation in gastric antrum--biopsied for H.pylori test - Colonoscopy: Multiple small and large-mouthed diverticula, some with clots, and evidence of recent bleeding were found in the sigmoid colon, descending colon, transverse colon and ascending colon. Clipped for hemostasis. - Diet advanced and tolerated Hypothyroidism - Held home levothyroxine 100mcg po qhs - Levothyroxine 75mcg IV daily - Plan to restart home levothyroxine 100mcg po once patient is no longer NPO status Tubular Adenoma - Colonoscopy with Dr. Green (GI) in July 2017 revealed tubular adenoma - GI consulted as noted above GERD - Held home omeprazole 20mg qhs - Started IV protonix 40mg IV daily - Plan to restart home omeprazole once patient is no longer NPO status Prediabetes - Pt with hx of prediabetes with A1c of 6.0% on labs 02/17/20 - Monitored BG levels on BMP daily Essential Tremor - Held home propranolol 60mg qhs while NPO FENGI: Regular diet Dispo: Home Code: Full Code (2) Anemia: (3) Hypothyroidism: (4) Tubular adenoma: (5) GERD (gastroesophageal reflux disease): (6) Prediabetes: (7) Essential tremor: Total Time Total Time Spent Total Time Spent (In Minutes): <30 Discharge Plan Discharge Items Patient Disposition: Home - Self-Care Reason For Visit: GI BLEED Discharge Diagnosis: Diverticulosis Activity: Resume your previous activity Non-emergency contact: Primary Care Provider Call non-emergency contact if: your symptoms worsen Follow-up/Referrals: Kishor Nagy MD [Primary Care Provider] - 03/08/20 3:00 pm (You have a follow up appt with Sindhu Hill on Mar 08 at 3p. Please arrive 15 minutes prior to your appt time. remember to wear your face mask. [address] [place] [address] ) Diet: Regular Addtl Attending Provider Instructions: You arrived at [facility] with complaints of blood in your bowel movements. During your stay you were found to have diverticulosis confirmed with colonoscopy. During your colonoscopy your dietary aid placed clips to stop bleeding from multiple diverticula thought to be the source of your bleeds. Definitely avoid anti-inflammatories (like ibuprofen) and aspirin to reduce risk of bleeding, since these can all act as a mild blood thinner. To avoid increased risk of recurrence, a diet high in fiber, and with low intake of fats and red meats could prove helpful. Additionally, physical activity ap pears to reduce the risk of diverticulitis and diverticular bleeding. Please follow up with your primary care provider for continued care. Pending Studies at Discharge: No Stand-Alone Forms: My [facility] Consumr, Smoking Cessation Medications and DC Order Prescriptions: Continued multivitamin Tablet 1 tab PO HS Qty: 0 RF: 0 cholecalciferol (vitamin D3) [Vitamin D3] 25 mcg (1,000 unit) Tablet 25 mcg PO HS Qty: 0 RF: 0 propranolol 60 mg capsule,extended release 24 hr 60 mg PO HS RF: 0 levothyroxine 100 mcg tablet 100 mcg PO HS RF: 0 omeprazole 20 mg capsule,delayed release(DR/EC) 20 mg PO HS RF: 0 Discontinued ibuprofen [Advil Liqui-Gel] 200 mg Capsule 400 mg PO Q6H PRN (Reason: Pain) RF: 0 Discharge Orders: Discharge Order (Routine); Ordered 03/02/20 Ordered By: Lux Logan Admission Data Admit Date/Time: 03/01/20 12:56 Attending Provider: Lux Logan Admit Provider: Megan Martinez Primary Care Provider: Kishor Nagy Other Providers: Jazzy Guaman ; Lorena Murillo ; Wayne Green Other Interventions: Discharge Summary Assessment (RN) Last Done: 03/02/20 13:57 Supervising Physician Co-Signing Physician Notes I personally examined the patient and verified all brandon points of history and exam, discussed case, and agree with decision making with Dr Salinas. feeling ok. no new issues. GI input appreciated. vitals noted nad heent nc at mmm breathing unlabored no accessory muscles good effort skin no rashes no pallor or icterus GI bleeding and subsequent acute blood loss anemia - hemodynamically stable; EGD negative, colo confirms expected findings c/w diverticular bleed - Hgb stable. stable for home otherwise as above Resident Activity Tracking Resident Involvement: Resident Care Provided Care Provided: Adult Hospital Medicine
--- NOTE | 2020-03-02 18:34 | Billing Data ---
Date of Service March 02, 2020 Coding Level of Care Code D/C Day Management <30 mins
[2020-03-04] MEDS ORDERED: LEVOTHYROXINE SODIUM 75 MCG in SYRINGE 0 ML IV SCH (09:00)
== END 2020-03-02 15:17 | disposition home or self-care (01) | DRG 378 ==
LOC: ED 07:24 → 2S 07:24 → SUATTDRO 11:04 → 2S 11:32 → 2W 03-01 17:19

== ENCOUNTER 2023-09-26 16:35 | Inpatient (IN) ==
--- NOTE | 2023-09-26 16:40 | ED Triage Note ---
Date of Service September 26, 2023 Provider in Triage Author: Patrick Wilson History of Present Illness This patient was briefly evaluated while in triage. An abbreviated physical exam was performed. This patient is a 68-year-old Female who presents to the ED for evaluation of saturday evening developed painless rectal bleeding noticed blood/clots in toilet bowl - happening without stooling denies abdominal pain, n/v hx of the same in March not on any blood thinners sent by GI Physical Exam GENERAL: NAD CARDIOVASCULAR: RRR RESPIRATORY: CTA ABDOMEN: BS x 4. Nontender to palpation. Initial orders for labs and / or imaging were placed and patient was placed in the waiting area until a bed is available. Please see further documentation for the full ED course.
[2023-09-26 17:19] LABS: Hematocrit (blood only) 32.6 % (37.0-47.0); Hemoglobin 10.5 g/dl (12.0-16.0); Mean Corpuscular Hemoglobin 28.9 pg (25.0-34.0); Mean Corpuscular Hgb Conc 32.2 g/dL (32.0-36.0); Mean Corpuscular Volume 89.8 fL (80.0-100.0); Mean Platelet Volume 11.1 fL (9.4-12.4); Platelet Count 280 K/uL (130-400); RDW Coefficient of Variation 14.8 % (11.5-14.5); RDW Standard Deviation 48.7 fL (36.4-46.3); Red Blood Count 3.63 M/uL (4.20-5.40); White Blood Count 7.65 K/ul (4.8-10.8)
[2023-09-26 17:36] LABS: Albumin Globulin Ratio 1.3 (0.9-2); Albumin Level 4.3 gm/dl (3.4-5.0); Bilirubin,Total 0.6 mg/dl (0.2-1.0); Creatinine Clr Calc Pharmacy 56.2 ml/min; Est GFR (African American) 66.6 ml/min; Est GFR (Non-African American) 57.4 ml/min; Globulin 3.2 gm/dl (2.5-4.0); Potassium 3.9 mmol/L (3.5-5.1); Total Protein 7.5 gm/dl (6.0-8.3)
[2023-09-26 17:42] LABS: Troponin I High Sensitivity 4.8 pg/ml (0-14)
[2023-09-26 17:46] LABS: Partial Thromboplastin Ratio 0.9; Partial Thromboplastin Time 24 Seconds (21-31); Prothrombin Time 11.1 Seconds (9.0-12.0)
--- NOTE | 2023-09-26 18:12 | Emergency Department Note ---
Impression & Plan GIB (gastrointestinal bleeding) ADMIT ED Provider Note HPI: History obtained from patient. The patient is a 68-year-old female who presents emergency department with a chief complaint of blood per rectum. Patient states that she has had some varying degree of rectal bleeding over the past 3 days. Patient states initially on Saturday she had some bright red blood per rectum, patient states that over the past 2 days this has appeared more like moderate-sized blood clots. On arrival to the ED the patient is hemodynamically stable, she denies any vomiting, denies any abdominal pain. Patient otherwise appears to be in no acute distress. ROS: - Per HPI Differential Diagnosis: Lower GI bleed, peptic ulcer disease, hemorrhoids, inflammatory bowel disease, amongst other potential pathologies. *Outpatient medications and allergy history reviewed. PE: General: Alert HEENT: Normocephalic, trachea midline Eyes: Extraocular eye movement is intact, no scleral erythema Pulmonary: Clear to auscultation bilaterally, no wheezing Cardio: Regular rate and rhythm GI: Abdomen is soft to palpation, rectal examination shows dried blood, occult stool testing is positive, no external hemorrhoids noted : No suprapubic tenderness MSK: No evidence of trauma or malformation of the extremities, no edema Skin: No evidence of rash Neuro: Alert, no focal deficits Psychiatric: Cooperative INDEPENDENT INTERPRETATIONS: campus monitor: (As interpreted by myself): - An order was placed for continuous cardiac monitoring - Patient was noted to be in sinus rhythm with a rate of 65 EKG: (As interpreted by myself): Rate: 65 Rhythm: Normal sinus rhythm Intervals: Within normal limits ST changes: No ST elevation Time: 2201 Interventions provided in ED: -IV Protonix bolus and drip Medical Decision Making: IV was established and lab work obtained, patient was placed on monitoring tech. Lab work shows no leukocytosis, hemoglobin is reduced at 10.5 in comparison to 12.7 on 05/2023, platelet count is normal, CMP does not show any critical findings, BUN is within normal limits, no acute kidney injury, troponin is negative. EKG per my interpretation shows normal sinus rhythm with a rate of 65 without any acute ischemic changes. Occult stool testing obtained at the bedside is positive. Patient does have a history of diverticular bleeding that previously required clips, I did discuss the case with gastroenterology, Dr. Bernard, who did perform the patient's previous colonoscopy. He recommends admission to observation and GI consultation to trend hemoglobin and monitor the patient's rectal bleeding. Patient was started on a Protonix bolus and drip, case was discussed with the on-call hospitalist, Dr. Butt, and the patient was placed for admission in stable condition. Consultants/Discussions held with other healthcare providers: -Gastroenterology, Dr. Bernard -Hospitalist, Dr. Butt Disposition discussion held by myself with: -Patient and at bedside Diagnosis: 1. Lower GI hemorrhage, acute 2. Anemia, acute 3. Occult positive stool testing, acute Disposition: Admission Everett Valencia DO Emergency Medicine Past Med/Surg History Medical History Acute blood loss anemia Anemia Bright red rectal bleeding Diverticulosis Encounter for pre-operative examination Essential tremor GERD (gastroesophageal reflux disease) Hypokalemia Hypothyroidism Non-alcoholic fatty liver disease Osteopenia Prediabetes Tubular adenoma Surgical History H/O colonoscopy with polypectomy (07/2017) H/O parotidectomy S/P laparoscopic cholecystectomy S/P oophorectomy S/P partial thyroidectomy Family History Father Myocardial infarction Hypertension Diabetes Kidney disease Mother Diabetes Rheumatoid arthritis Sister Lyme arthritis Diabetes Brother Diabetes Rheumatoid arthritis Vasculitis Denies family history of Ovarian cancer Prostate cancer Deep vein thrombosis Depression Breast cancer Lung cancer COPD (chronic obstructive pulmonary disease) Colorectal cancer Social History Smoking Status: Never smoker Second Hand Exposure: No; Do You Dip or Chew Tobacco: No; Hx Alcohol Use: Yes Alcohol type: wine Alcohol Intake Frequency: 2-4 x/Month Hx Substance Use: No Preferred Language: Tongan Communication Ability: Effective Visual Impairment: No Limitations Hearing Ability: Normal Management Associate Required: No Beliefs That Will Affect Care: None marital status: Current Living Situation: Spouse and Family Current Living Situation Comment: Spouse and son current occupational status: employed current occupation: [employer] Feels Safe at Home: Yes Childhood Exposure to Second-Hand Smoke: No Diet: regular caffeine: Yes during the past year weight has: remained stable Dental Care, Regularly: Yes Physical Activity Frequency: Daily Physical Activity Frequency Comment: walk Seatbelt Use: always Sunscreen Use: Yes Assistive Devices: Glasses Allergies Allergies Allergy/AdvReac Type Severity Reaction Status Date / Time amoxicillin Allergy Severe N/V Verified 09/26/23 20:14 Sulfa (Sulfonamide Allergy Mild SICK IN Verified 09/26/23 20:14 Antibiotics) THE STOMACH benzocaine Allergy Unknown TOPICAL Verified 09/26/23 20:14 BENZOCAINE>SKIN REACTION Home Meds Home Medications Medication Instructions Recorded Confirmed cholecalciferol (vitamin D3) 25 25 mcg PO HS ##0 07/19/17 09/26/23 mcg (1,000 unit) tablet (Vitamin D3) multivitamin 1 tab PO HS #0 tabs 07/19/17 09/26/23 gabapentin 100 mg capsule 100 mg PO QAM 09/26/23 09/26/23 levothyroxine 100 mcg tablet 100 mcg PO DAILYBB 09/26/23 09/26/23 propranolol 80 mg capsule,24 80 mg PO QAM 09/26/23 09/26/23 hr,extended release Previous Rx's Medication Instructions Recorded omeprazole 20 mg capsule,delayed 20 mg PO HS #90 caps 08/08/23 release gabapentin 300 mg capsule 300 mg PO QPM #30 caps 08/19/23 Results & Data (ED) Vital Signs Vital Signs - 24 hr 09/26/23 16:37 09/26/23 18:02 09/26/23 18:02 Temperature 36.2 C L Temperature Source Temporal Artery Scan Pulse Rate - Lying Pulse Rate - Sitting Pulse Rate - Standing Pulse Rate 64 Pulse Rate [Apical] 69 Pulse Rhythm Regular Pulse Strength Normal Respiratory Rate 20 24 Respiratory Effort / Characteristics Non-Labored Spontaneous Respiratory Depth Normal Blood Pressure - Lying Blood Pressure - Sitting Blood Pressure- Standing Blood Pressure 154/106 H Blood Pressure [Right Arm] 139/90 Blood Pressure Mean 122 Blood Pressure Mean [Right Arm] 106 Blood Pressure Position Sitting Pulse Oximetry 96 99 99 Oxygen Delivery Method Room Air Room Air Room Air Sepsis Recent Fever Within 48 Hours No Sepsis New/Unexplained Change in Mental Status N/A Sepsis Action Taken by Nursing No Action Required 09/26/23 18:06 09/26/23 18:09 09/26/23 20:00 Temperature Temperature Source Pulse Rate - Lying 71 Pulse Rate - Sitting 80 Pulse Rate - Standing 79 Pulse Rate 69 Pulse Rate [Apical] 62 Pulse Rhythm Pulse Strength Respiratory Rate 17 Respiratory Effort / Characteristics Respiratory Depth Blood Pressure - Lying 139/90 Blood Pressure - Sitting 128/88 Blood Pressure- Standing 118/84 Blood Pressure Blood Pressure [Right Arm] 118/77 Blood Pressure Mean Blood Pressure Mean [Right Arm] 90 Blood Pressure Position Pulse Oximetry 97 Oxygen Delivery Method Room Air Sepsis Recent Fever Within 48 Hours Sepsis New/Unexplained Change in Mental Status Sepsis Action Taken by Nursing 09/26/23 21:59 Temperature Temperature Source Pulse Rate - Lying Pulse Rate - Sitting Pulse Rate - Standing Pulse Rate 67 Pulse Rate [Apical] Pulse Rhythm Pulse Strength Respiratory Rate Respiratory Effort / Characteristics Respiratory Depth Blood Pressure - Lying Blood Pressure - Sitting Blood Pressure- Standing Blood Pressure Blood Pressure [Right Arm] Blood Pressure Mean Blood Pressure Mean [Right Arm] Blood Pressure Position Pulse Oximetry Oxygen Delivery Method Sepsis Recent Fever Within 48 Hours Sepsis New/Unexplained Change in Mental Status Sepsis Action Taken by Nursing Laboratory Data 09/26/23 16:48 09/26/23 16:48 Lab Results 09/26/23 09/26/23 09/26/23 Range/Units 16:48 17:51 18:40 WBC 7.65 (4.8-10.8) K/ul RBC 3.63 L (4.20-5.40) M/uL Hgb 10.5 L (12.0-16.0) g/dl Hct 32.6 L (37.0-47.0) % MCV 89.8 (80.0-100.0) fL MCH 28.9 (25.0-34.0) pg MCHC 32.2 (32.0-36.0) g/dL RDW Std Deviation 48.7 H (36.4-46.3) fL RDW Coeff of Taco 14.8 H (11.5-14.5) % Plt Count 280 (130-400) K/uL MPV 11.1 (9.4-12.4) fL PT 11.1 (9.0-12.0) Seconds INR 1.0 (0.9-1.1) APTT 24 (21-31) Seconds PTT Ratio 0.9 Sodium 139 (136-145) mmol/L Potassium 3.9 (3.5-5.1) mmol/L Chloride 105 (98-107) mmol/L Carbon Dioxide 26 (21-32) mmol/L Anion Gap 8 (3-11) BUN 17 (6-23) mg/dl Creatinine 1.00 (0.6-1.2) mg/dl Est Cr Clr Drug Dosing 56.2 ml/min Est GFR ( Amer) 66.6 ml/min Est GFR (Non-Af Amer) 57.4 ml/min BUN/Creatinine Ratio 17.0 (10-20) Glucose 116 H (70-99(Fasting)) mg/dl Calcium 9.0 (8.6-10.3) mg/dl Total Bilirubin 0.6 (0.2-1.0) mg/dl AST 21 (13-39) U/L ALT 20 (7-52) U/L Alkaline Phosphatase 72 (34-104) U/L Troponin I High Sens 4.8 (0-14) pg/ml Total Protein 7.5 (6.0-8.3) gm/dl Albumin 4.3 (3.4-5.0) gm/dl Globulin 3.2 (2.5-4.0) gm/dl Albumin/Globulin Ratio 1.3 (0.9-2) POC Stool Occult Blood Positive A (Negative) Blood Type O Positive Antibody Screen NEGATIVE Administered Medications Pantoprazole Sodium 40 mg/ (Dextrose) 100 mls @ 20 mls/hr IV Q5H PERI Stop: 10/26/23 19:44 Last Admin: 09/26/23 19:55 Dose: 8 mg/hr, 20 mls/hr Documented By: TANNA Lactated Ringer's (Lr) 1,000 mls @ 125 mls/hr IV .Q8H PERI Stop: 10/26/23 20:29 Last Admin: 09/26/23 20:44 Dose: 125 mls/hr Documented By: TANNA Discontinued Medications Pantoprazole Sodium 80 mg/ (Dextrose) 120 mls @ 480 mls/hr IV NOW ONE Stop: 09/26/23 19:31 Last Infusion: 09/26/23 20:10 Dose: Infused Documented By: Admin: 09/26/23 19:34 Dose: 480 mls/hr Documented By: TANNA Discharge Plan Visit Data Chief Complaint: GI Bleed Stated Complaint: GI BLEED ED Provider: Everett Valencia Discharge Problem: GIB (gastrointestinal bleeding) Forms Stand Alone Forms: [facility] Prescriptions Prescriptions: No Action multivitamin Tablet 1 tab PO HS Qty: 0 cholecalciferol (vitamin D3) [Vitamin D3] 25 mcg (1,000 unit) Tablet 25 mcg PO HS Qty: 0 omeprazole 20 mg capsule,delayed release(DR/EC) 20 mg PO HS Qty: 90 3RF gabapentin 300 mg capsule 300 mg PO QPM Qty: 30 2RF gabapentin 100 mg capsule 100 mg PO QAM levothyroxine 100 mcg tablet 100 mcg PO DAILYBB propranolol 80 mg capsule,extended release 24hr 80 mg PO QAM Referrals Referrals: Bob Nagy MD [Primary Care Provider] - Discharge Problem: GIB (gastrointestinal bleeding) Qualifiers: GI bleed type/associated pathology: unspecified gastrointestinal hemorrhage type Qualified Code(s): K92.2 - Gastrointestinal hemorrhage, unspecified
[2023-09-26] MEDS ORDERED: PANTOPRAZOLE BOLUS/DRIP IV STA (19:17)
[2023-09-26] MEDS: PANTOprazole 80 MG in DEXTROSE 5% 100 ML IV ONE (19:34)
[2023-09-26] MEDS: PANTOprazole 40 MG in DEXTROSE 5% MINI-B 100 ML IV SCH (19:55)
--- NOTE | 2023-09-26 20:00 | History & Physical Report ---
Date of Service September 26, 2023 Assessment & Plan (1) Bright red rectal bleeding: Plan: Ana is a 68-year-old female with a past medical history of hypothyroidism, prediabetes, splenic mass, nonalcoholic fatty liver disease, GERD, hyper triglyceridemia, and essential tremor who presents with concerns for GI bleed. Suspected lower GI bleed With bright red blood per rectum/rectal bleeding over the 3 days. Has had some clots. No epigastric pain, BUN is not elevated. Does have a history of GERD Last colonoscopy 03/2020 with multiple diverticula some with clot, with evidence of recent bleeding at that time for which 6 hemostatic clips were placed. Blood was noted in ascending/transverse/descending colon at that time. Hemoglobin is greater than 10, no indication for transfusion at this time. Transfusion threshold 7 or symptomatic/hemodynamic instability. Type and screen ordered with 2 units on hold. Consent signed. H&H trended every 6 hours Initially ordered PPI bolus, converted to twice daily given history of GERD although low suspicion that this is upper GI bleeding GI consulted. N.p.o. (2) GERD (gastroesophageal reflux disease): Plan: PPI continued as noted (3) Splenic mass: Plan: Splenic masses Follows with [facility] hematology oncology. Noted to have 2 splenic masses, 2.1 cm and 5.7 cm. Follow-up imaging suggestive of benign etiology/hemangioma with lymphangioma within the differential. Patient is currently monitored annually. Plan Chronic stable issues Hypertriglyceridemia: Continue outpatient monitoring Hypothyroidism: Resume Synthroid when able to tolerate p.o. Nonalcoholic fatty liver disease: No evidence of decompensation, no known history of cirrhosis or varices. History of Present Illness Primary Care Provider: Bob Nagy MD Ana is a 68-year-old female with a past medical history of hypothyroidism, prediabetes, splenic mass, nonalcoholic fatty liver disease, GERD, hyper triglyceridemia, and essential tremor who presents with concerns for GI bleed. Presents with GI bleeding. Bright red blood on 2 bowel movements in the toilet Saturday. Wed some bright red blood with clots, and 1 BM with clots today. Had similar symptoms with prior lower GI bleed. No black, sticky, tarry, or coffee ground in appearance. No lightheadedness or dizziness. No chest pain or chest pressure. No fever chills or sweats No abdominal pain. Does have a hx of GERD, feels this has been 'good as long as I take omeprazole once a day.' No recent flare Diminished appetite for a few days, no diarrhea or constipation. No nausea or vomiting. Medical History: Reviewed Medications: Reviewed Surgical History: Reviewed Family history: Reviewed Allergies: Reviewed Social History: No tobacco use. Rare social etoh use. No recreational drug use. Code Status: Full Code Allergies Allergy/AdvReac Type Severity Reaction Status Date / Time amoxicillin Allergy Severe N/V Verified 09/26/23 20:14 Sulfa (Sulfonamide Allergy Mild SICK IN Verified 09/26/23 20:14 Antibiotics) THE STOMACH benzocaine Allergy Unknown TOPICAL Verified 09/26/23 20:14 BENZOCAINE>SKIN REACTION Home Medications Medication Instructions Recorded Confirmed Type cholecalciferol (vitamin D3) 25 25 mcg PO HS ##0 07/19/17 09/26/23 History mcg (1,000 unit) tablet (Vitamin D3) multivitamin 1 tab PO HS #0 tabs 07/19/17 06/13/23 History omeprazole 20 mg capsule,delayed 20 mg PO HS #90 caps 08/08/23 09/26/23 Rx release gabapentin 300 mg capsule 300 mg PO QPM #30 caps 08/19/23 09/26/23 Rx gabapentin 100 mg capsule 100 mg PO QAM 09/26/23 09/26/23 History levothyroxine 100 mcg tablet 100 mcg PO DAILYBB 09/26/23 09/26/23 History propranolol 80 mg capsule,24 80 mg PO QAM 09/26/23 09/26/23 History hr,extended release Past Med/Surg History Medical History Acute blood loss anemia Anemia Bright red rectal bleeding Diverticulosis Encounter for pre-operative examination Essential tremor GERD (gastroesophageal reflux disease) Hypokalemia Hypothyroidism Non-alcoholic fatty liver disease Osteopenia Prediabetes Tubular adenoma Surgical History H/O colonoscopy with polypectomy (07/2017) H/O parotidectomy S/P laparoscopic cholecystectomy S/P oophorectomy S/P partial thyroidectomy Family History Father Myocardial infarction Hypertension Diabetes Kidney disease Mother Diabetes Rheumatoid arthritis Sister Lyme arthritis Diabetes Brother Diabetes Rheumatoid arthritis Vasculitis Denies family history of Ovarian cancer Prostate cancer Deep vein thrombosis Depression Breast cancer Lung cancer COPD (chronic obstructive pulmonary disease) Colorectal cancer Social History Smoking Status: Never smoker Second Hand Exposure: No; Do You Dip or Chew Tobacco: No; Hx Alcohol Use: Yes Alcohol type: wine Alcohol Intake Frequency: 2-4 x/Month Hx Substance Use: No Preferred Language: Norwegian Communication Ability: Effective Visual Impairment: No Limitations Hearing Ability: Normal Medical Records Secretary Required: No Beliefs That Will Affect Care: None marital status: Current Living Situation: Spouse and Family Current Living Situation Comment: Spouse and son current occupational status: employed current occupation: [employer] Feels Safe at Home: Yes Childhood Exposure to Second-Hand Smoke: No Diet: regular caffeine: Yes during the past year weight has: remained stable Dental Care, Regularly: Yes Physical Activity Frequency: Daily Physical Activity Frequency Comment: walk Seatbelt Use: always Sunscreen Use: Yes Assistive Devices: Glasses Physical Exam Physical Exam: General: A&Ox3. NAD. Cooperative. HEENT: Atraumatic, normocephalic. Pulm: CTAB A&P. -wheezes, -rales, -rhonchi. Symmetrical chest rise. No increased work of breathing. No respiratory distress. Cardiac: RRR, -mrg. Radial pulses intact and symmetrical. Abdominal: Nontender, nondistended, soft. BS present. No epigastric or LLQ pain Results & Data Results & Data Vital Signs (Past 12 Hours) Vital Signs Temp Pulse Pulse Resp BP BP Pulse Ox 09/26/23 18:09 69 09/26/23 18:02 99 09/26/23 18:02 24 139/90 99 09/26/23 16:37 36.2 C L 64 20 154/106 H 96 O2 Del Method 09/26/23 18:09 09/26/23 18:02 Room Air 09/26/23 18:02 Room Air 09/26/23 16:37 Room Air PG Care Time/CCT Total # of Minutes Spent Total Time Spent with Patient: Total time spent is greater than 50% in coordination of care (as documented) at patient's floor/unit and/or counseling patient: Coding Level of Care Code 54816 INT INP/OBS CARE MIN Diagnoses Bright red rectal bleeding K62.5 Gastroesophageal reflux disease without esophagitis K21.9 Esophagitis presence: without esophagitis Splenic mass R16.1 (2) GERD (gastroesophageal reflux disease) Esophagitis presence: without esophagitis Qualified Code(s): K21.9 - Gastro- esophageal reflux disease without esophagitis
[2023-09-26] MEDS ORDERED: SODIUM CHLORIDE 0.9% 250 ML IV PRN (20:19)
[2023-09-26] MEDS: LACTATED RINGER'S 1,000 ML IV SCH (20:44)
[2023-09-27 01:18] LABS: Hematocrit (blood only) 28.5 % (37.0-47.0); Hemoglobin 9.1 g/dl (12.0-16.0)
[2023-09-27 05:59] LABS: Basophils # (auto) 0.06 K/uL (0.00-0.20); Eosinophils # (auto) 0.12 K/uL (0.00-0.50); Hematocrit (blood only) 25.9 % (37.0-47.0); Hemoglobin 8.5 g/dl (12.0-16.0); Immature Granulocytes # (auto) 0.01 K/uL (0.01-0.20); Immature Granulocytes % (auto) 0.2 %; Lymphocytes # (auto) 1.95 K/uL (1.20-3.40); Lymphocytes % (auto) 32.7 %; Mean Corpuscular Hemoglobin 29.6 pg (25.0-34.0); Mean Corpuscular Hgb Conc 32.8 g/dL (32.0-36.0); Mean Corpuscular Volume 90.2 fL (80.0-100.0); Mean Platelet Volume 11.1 fL (9.4-12.4); Monocytes # (auto) 0.74 K/uL (0.11-0.59); Monocytes % (auto) 12.4 %; Neutrophils # (auto) 3.08 K/uL (1.40-6.50); Neutrophils % (auto) 51.7 %; Platelet Count 191 K/uL (130-400); RDW Coefficient of Variation 14.7 % (11.5-14.5); RDW Standard Deviation 48.1 fL (36.4-46.3); Red Blood Count 2.87 M/uL (4.20-5.40); White Blood Count 5.96 K/ul (4.8-10.8)
[2023-09-27 06:10] LABS: BUN Creatinine Ratio 12.5 (10-20); Calcium 8.2 mg/dl (8.6-10.3); Creatinine Clr Calc Pharmacy 58.6 ml/min; Est GFR (African American) 69.9 ml/min; Est GFR (Non-African American) 60.3 ml/min; Potassium 3.2 mmol/L (3.5-5.1)
--- NOTE | 2023-09-27 07:09 | Hospitalist Progress Note ---
Date of Service September 27, 2023 Assessment & Plan Plan Ana is a 68-year-old female with a past medical history of hypothyroidism, prediabetes, splenic mass, nonalcoholic fatty liver disease, GERD, hyper triglyceridemia, and essential tremor who presents with concerns for GI bleed. (1) Bright red rectal bleeding Suspected lower GI bleed With bright red blood per rectum/rectal bleeding over the 3 days. Has had some clots. No epigastric pain, BUN is not elevated. Does have a history of GERD Last colonoscopy 03/2020 with multiple diverticula some with clot, with evidence of recent bleeding at that time for which [address] d. Blood was noted in ascending/transverse/descending colon at that time. Hgb, 8.5 <-- 9.1 <-- 10.5, no indication for transfusion at this time. Transfusion threshold 7 or symptomatic/hemodynamic instability. Type and screen ordered with 2 units on hold. Consent signed. H&H trended every 6 hours, Diet NPO Initially ordered PPI bolus, converted to twice daily given history of GERD although low suspicion that this is upper GI bleeding GI consulted (2) GERD (gastroesophageal reflux disease) PPI continued as noted (3) Splenic mass Splenic masses Follows with [facility] hematology/oncology. Noted to have 2 splenic masses, 2.1 cm and 5.7 cm. Follow-up imaging suggestive of benign etiology/hemangioma with lymphangioma within the differential. Patient is currently monitored annually. Plan Chronic stable issues Hypertriglyceridemia: Continue outpatient monitoring Hypothyroidism: Resume Synthroid when able to tolerate p.o. Nonalcoholic fatty liver disease: No evidence of decompensation, no known history of cirrhosis or varices. Admission and Anticipated Discharge Date Admission Date: September 26, 2023 Results & Data Results & Data Vital Signs (Past 12 Hours) Vital Signs Pulse Pulse Resp BP Pulse Ox O2 Del Method 09/27/23 05:00 64 16 97/54 L 97 Room Air 09/27/23 04:00 87 19 97/74 L 96 Room Air 09/27/23 02:00 79 18 116/73 97 Room Air 09/27/23 01:06 82 09/27/23 00:00 72 18 116/73 95 Room Air 09/26/23 23:00 60 17 126/79 95 Room Air 09/26/23 23:00 60 17 95 Room Air 09/26/23 22:22 65 16 128/79 97 Room Air 09/26/23 21:59 67 09/26/23 20:00 62 17 118/77 97 Room Air
[2023-09-27] MEDS: PANTOprazole 40 MG in SYRINGE 0 ML IV SCH (09:29)
--- NOTE | 2023-09-27 10:24 | Gastrointestinal Consultation ---
Date of Consultation September 27, 2023 Assessment & Plan (1) GIB (gastrointestinal bleeding): (2) Diverticulosis: Plan Patient is a 68 y.o. female with a history of diverticular bleed admitted with symptomatic anemia and bright red blood per rectum. Given history of prior diverticular bleed and lack of abdominal pain, suspect recurrent diverticular bleeding. 1. NPO for now. 2. CTAP angio for further evaluation. 3. Continue Pantoprazole 40 mg IV BID. 4. Further recommendations pending results of imaging. Thank you for allowing us to participate in the care of this patient. If you have any questions or concerns, please do not hesitate to contact us. Supervising Physician Co-Signing Physician Notes Agree with HAYLIE Bauman as above Abd: Soft, NT, ND, +BS Continue current therapy and supportive care Consider colonoscopy in next few days, but will follow H/H and review CT with Radiologist Will Discuss with Dr. Benoit who will be covering this weekend History of Present Illness Reason for Consultation: Rectal bleeding Requesting Physician: Dr. Valencia Attending Physician: Lux Logan DO History of Present Illness Patient is a 68 y.o. 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 She states the onset of symptoms followed a trip to [place] at which time she had not had a bowel movement for several days. She returned home this past weekend and did have 4 bowel movements Saturday, 09/22 and the bleeding began the following day. Blood has been with bms as well as independent of bms. She has a history of similar symptoms in 2019 at which time she was diagnosed with a diverticular bleed by Dr. Bernard and has undergone a colonoscopy with Endoclip placement. She denies any abdominal pain, nausea or vomiting or other GI complaints. She is hypotensive and bradycardic. H&H has been trending down with a hemoglobin of 10.5 upon arrival and down to 8.5 this morning. BUN is normal. She states he has not passed any further bright red blood or clots since admission, however. Allergies Allergy/AdvReac Type Severity Reaction Status Date / Time amoxicillin Allergy Severe N/V Verified 09/26/23 20:14 Sulfa (Sulfonamide Allergy Mild SICK IN Verified 09/26/23 20:14 Antibiotics) THE STOMACH benzocaine Allergy Unknown TOPICAL Verified 09/26/23 20:14 BENZOCAINE>SKIN REACTION Home Medications Medication Instructions Recorded Confirmed Type cholecalciferol (vitamin D3) 25 25 mcg PO HS ##0 07/19/17 09/26/23 History mcg (1,000 unit) tablet (Vitamin D3) multivitamin 1 tab PO HS #0 tabs 07/19/17 09/26/23 History omeprazole 20 mg capsule,delayed 20 mg PO HS #90 caps 08/08/23 09/26/23 Rx release gabapentin 300 mg capsule 300 mg PO QPM #30 caps 08/19/23 09/26/23 Rx gabapentin 100 mg capsule 100 mg PO QAM 09/26/23 09/26/23 History levothyroxine 100 mcg tablet 100 mcg PO DAILYBB 09/26/23 09/26/23 History propranolol 80 mg capsule,24 80 mg PO QAM 09/26/23 09/26/23 History hr,extended release Patient History Medical History Non-alcoholic fatty liver disease Hypokalemia Diverticulosis Encounter for pre-operative examination Acute blood loss anemia Essential tremor Anemia Bright red rectal bleeding Prediabetes Osteopenia GERD (gastroesophageal reflux disease) Hypothyroidism Tubular adenoma Surgical History H/O parotidectomy 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 S/P partial thyroidectomy Age 11-benign goiter S/P laparoscopic cholecystectomy S/P oophorectomy enlarged ovary removed-benign H/O colonoscopy with polypectomy (07/2017) Family History Father Myocardial infarction Hypertension Diabetes Kidney disease Mother Diabetes Rheumatoid arthritis Sister Lyme arthritis Diabetes Brother Diabetes Rheumatoid arthritis Vasculitis Denies family history of Ovarian cancer Prostate cancer Deep vein thrombosis Depression Breast cancer Lung cancer COPD (chronic obstructive pulmonary disease) Colorectal cancer Social History Smoking Status: Never smoker Second Hand Exposure: No; Do You Dip or Chew Tobacco: No; Hx Alcohol Use: Yes Alcohol type: wine Alcohol Intake Frequency: 2-4 x/Month Hx Substance Use: No Preferred Language: Slovak Communication Ability: Effective Visual Impairment: No Limitations Hearing Ability: Normal Operations And Maintenance Technician Required: No Beliefs That Will Affect Care: None marital status: Current Living Situation: Spouse Current Living Situation Comment: Spouse and son current occupational status: employed current occupation: [employer] Feels Safe at Home: Yes Childhood Exposure to Second-Hand Smoke: No Diet: regular caffeine: Yes during the past year weight has: remained stable Dental Care, Regularly: Yes Physical Activity Frequency: Daily Physical Activity Frequency Comment: walk Seatbelt Use: always Sunscreen Use: Yes Assistive Devices: None Review of Systems Constitutional: + fatigue; no fever and no chills Respiratory: no cough and no dyspnea Cardiovascular: no chest pain and no palpitations Gastrointestinal: as per Subjective / HPI Physical Exam Constitutional: WD/WN, vitals as above Respiratory: normal respiratory effort, lungs clear to auscultation Cardiovascular: Rate/Rhythm: regular rate and regular rhythm Gastrointestinal (Abdomen): normal bowel sounds, soft, nontender, no hepatosplenomegaly Skin: + pallor Psychiatric: A+Ox3, euthymic affect Results & Data Vital Signs (Past 12 Hours) Vital Signs Pulse Pulse Resp BP Pulse Ox O2 Del Method 09/27/23 07:10 55 L 09/27/23 05:00 64 16 97/54 L 97 Room Air 09/27/23 04:00 87 19 97/74 L 96 Room Air 09/27/23 02:00 79 18 116/73 97 Room Air 09/27/23 01:06 82 09/27/23 00:00 72 18 116/73 95 Room Air 09/26/23 23:00 60 17 126/79 95 Room Air 09/26/23 23:00 60 17 95 Room Air 09/26/23 22:22 65 16 128/79 97 Room Air Diagnostic Findings Laboratory Results WBC 5.96 K/ul (4.8-10.8) 09/27/23 05:26 RBC 2.87 M/uL (4.20-5.40) L 09/27/23 05:26 Hgb 8.5 g/dl (12.0-16.0) L 09/27/23 05:26 Hct 25.9 % (37.0-47.0) L 09/27/23 05:26 MCV 90.2 fL (80.0-100.0) 09/27/23 05:26 MCH 29.6 pg (25.0-34.0) 09/27/23 05:26 MCHC 32.8 g/dL (32.0-36.0) 09/27/23 05:26 RDW Std Deviation 48.1 fL (36.4-46.3) H 09/27/23 05:26 RDW Coeff of Taco 14.7 % (11.5-14.5) H 09/27/23 05:26 Plt Count 191 K/uL (130-400) 09/27/23 05:26 MPV 11.1 fL (9.4-12.4) 09/27/23 05:26 Immature Gran % (Auto) 0.2 % 09/27/23 05:26 Neut % (Auto) 51.7 % 09/27/23 05:26 Lymph % (Auto) 32.7 % 09/27/23 05:26 Beltrami % (Auto) 12.4 % 09/27/23 05:26 Eos % (Auto) 2.0 % 09/27/23 05:26 Baso % (Auto) 1.0 % 09/27/23 05:26 Neut # (Auto) 3.08 K/uL (1.40-6.50) 09/27/23 05:26 Lymph # (Auto) 1.95 K/uL (1.20-3.40) 09/27/23 05:26 Beltrami # (Auto) 0.74 K/uL (0.11-0.59) H 09/27/23 05:26 Eos # (Auto) 0.12 K/uL (0.00-0.50) 09/27/23 05:26 Baso # (Auto) 0.06 K/uL (0.00-0.20) 09/27/23 05:26 Immature Gran # (Auto) 0.01 K/uL (0.01-0.20) 09/27/23 05:26 PT 11.1 Seconds (9.0-12.0) 09/26/23 16:48 INR 1.0 (0.9-1.1) 09/26/23 16:48 APTT 24 Seconds (21-31) 09/26/23 16:48 PTT Ratio 0.9 09/26/23 16:48 Sodium 141 mmol/L (136-145) 09/27/23 05:26 Potassium 3.2 mmol/L (3.5-5.1) L 09/27/23 05:26 Chloride 109 mmol/L (98-107) H 09/27/23 05:26 Carbon Dioxide 27 mmol/L (21-32) 09/27/23 05:26 Anion Gap 5 (3-11) 09/27/23 05:26 BUN 12 mg/dl (6-23) 09/27/23 05:26 Creatinine 0.96 mg/dl (0.6-1.2) 09/27/23 05:26 Est Cr Clr Drug Dosing 58.6 ml/min 09/27/23 05:26 Est GFR ( Amer) 69.9 ml/min 09/27/23 05:26 Est GFR (Non-Af Amer) 60.3 ml/min 09/27/23 05:26 BUN/Creatinine Ratio 12.5 (10-20) 09/27/23 05:26 Glucose 107 mg/dl (70-99(Fasting)) H 09/27/23 05:26 Calcium 8.2 mg/dl (8.6-10.3) L 09/27/23 05:26 Total Bilirubin 0.6 mg/dl (0.2-1.0) 09/26/23 16:48 AST 21 U/L (13-39) 09/26/23 16:48 ALT 20 U/L (7-52) 09/26/23 16:48 Alkaline Phosphatase 72 U/L (34-104) 09/26/23 16:48 Troponin I High Sens 4.8 pg/ml (0-14) 09/26/23 16:48 Total Protein 7.5 gm/dl (6.0-8.3) 09/26/23 16:48 Albumin 4.3 gm/dl (3.4-5.0) 09/26/23 16:48 Globulin 3.2 gm/dl (2.5-4.0) 09/26/23 16:48 Albumin/Globulin Ratio 1.3 (0.9-2) 09/26/23 16:48 POC Stool Occult Blood Positive (Negative) A 09/26/23 18:40 Blood Type O Positive 09/26/23 17:51 Antibody Screen NEGATIVE 09/26/23 17:51 PG Care Time/CCT Total # of Minutes Spent Total Time Spent with Patient: Total time spent is greater than 50% in coordination of care (as documented) at patient's floor/unit and/or counseling patient: Coding Level of Care Code 79234 INT INP/OBS CARE 3/75MIN Diagnoses GIB (gastrointestinal bleeding) K92.2 GI bleed type/associated pathology: unspecified gastrointestinal h emorrhage type Diverticulosis K57.90 (1) GIB (gastrointestinal bleeding) GI bleed type/associated pathology: unspecified gastrointestinal hemorrhage type Qualified Code(s): K92.2 - Gastrointestinal hemorrhage, unspecified
[2023-09-27] MEDS: OPTIRAY 350 500ml IV ONE (10:27)
--- NOTE | 2023-09-27 10:53 | CT Scan Report ---
CT ANGIOGRAPHY OF THE ABDOMEN AND PELVIS CLINICAL HISTORY: Rectal bleeding, history of diverticular bleed. COMPARISON STUDY: CT of the abdomen and pelvis October 24, 2021. TECHNIQUE: Helical axial images of the abdomen and pelvis were obtained during arterial phase followi ng intravenous injection of 120 cc of Optiray 320 IV. Sagittal and coronal reconstructions were viewe d as well as maximal intensity projections on an independent 3-D workstation. Automated exposure cont rol was utilized for the study. A dose lowering technique was utilized adhering to the principles of ALARA. FINDINGS: Lung bases are unremarkable. No pneumatosis, free air or portal venous gas is present. The caliber of the abdominal aorta is normal. There is mild atherosclerotic plaque within the abdominal a danielle. There is mild plaque within the proximal superior mesenteric artery without stenosis. The magaly c axis is patent. Renal arteries are patent. Inferior mesenteric artery is patent. The bilateral comm on iliac, internal iliac, external iliac and common femoral arteries are patent. There is no biliary ductal dilatation status post cholecystectomy. 6 cm hypodense splenic lesion is unchanged since CT of October 24, 2021. An additional 4.1 cm lesion within the superior aspect of the spleen has increased i n size since prior CT when it measured 1.9 cm. There is extensive colonic diverticulosis without evid ence for acute diverticulitis. No intraluminal contrast within the bowel is identified. Trace fluid w ithin the pelvis is present. There is no evidence for a bowel obstruction. The appendix is normal. Th ere is no lymphadenopathy. IMPRESSION: 1. Mild atherosclerotic plaque within the abdominal aorta and branch vessels. Patent vessels. No sten oses. 2. Extensive colonic diverticulosis. No evidence for acute diverticulitis. No bowel wall thickening. No intraluminal contrast within the bowel. 3. No change in the previously described larger splenic lesion. Mild increase in size of the smaller splenic lesion. These lesions are indeterminate although statistically benign. ACT 112: Negative or not required by law. Electronically signed by: Edin Mir M.D. 09/27/2023 10:51 AM
[2023-09-27 12:07] LABS: Hematocrit (blood only) 26.7 % (37.0-47.0); Hemoglobin 8.8 g/dl (12.0-16.0)
--- NOTE | 2023-09-27 15:50 | Hospitalist Progress Note ---
Date of Service September 27, 2023 Assessment & Plan (1) GIB (gastrointestinal bleeding): Plan: - With bright red blood per rectum/rectal bleeding over the 3 days. Differentials include lower GI bleed, internal hemorrhoid rupture, diverticulosis/diverticulitis, colorectal polyps, colorectal cancer, ischemic colitis, rectal ulcers - Currently, patients BP and pulse are low. - Hemoglobin of 9.1 on 09/25 and 8.5 on 09/24. Patient does not have any epigastric pain, nausea, vomiting, etc. - Last EGD found and removed incidental polyp; found inflammation in gastric antrum. Biopsy was negative for h. pylori. Last colonoscopy 03/2020 with multiple diverticula, some with clot, with evidence of recent bleeding at that time for which 6 hemostatic clips were placed. Blood was noted in ascending/transverse/descending colon at that time. - GI was consulted. Ordered CTAP angio. - CTAP angio today also showed diverticulosis. - Due to history of prior diverticular bleed and lack of abdominal pain, suspect recurrent diverticular bleed. - Patient is N.P.O. but can be switched to liquid diet. (2) Diverticulosis: Plan: - Colonoscopy 03/2020 revealed multiple diverticula, some with clot. 6 hemostatic clips were placed. - CTAP angio today on 09/26 showed diverticulosis. - GI consulted and deciding on timing of endoscopy. - Patient is currently scheduled for one in late September. However, they may do one while inpatient. (3) Anemia: Plan: - Currently, patients BP and pulse are low. - Hemoglobin of 9.1 on 09/25 and 8.5 the morning of 09/24. - No indication for transfusion at this time. Continue H&H trended every 6 hours. (4) Constipation: Plan: - GI previously recommended Metamucil 1 tbsp in 8 ounces of water in the evening and MiraLAX as directed if needed for constipation. - Would advise patient to continue with Metamucil gummy (fiber supplement) every night but to also add Miralax 17 Bid every day. Sliding scale Miralax from there. - Discussion with patient about medications, including laxatives, and relationship with GI bleeds. - Diet high in fiber and low intake of fats and red meats. - F/U with GI within 2 weeks of discharge. (5) GERD (gastroesophageal reflux disease): Plan: PPI bolus daily given history of GERD although low suspicion that this is upper GI bleeding. - Continue avoiding NSAIDs. - Plan to restart home omeprazole once patient is not NPO (6) Splenic mass: Plan: - Follows with [facility] hematology oncology. 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 - Follow-up imaging suggestive of benign etiology/hemangioma with lymphangioma within the differential. - Patient is currently monitored annually. Plan Chronic stable issues Hypertriglyceridemia: Continue outpatient monitoring Hypothyroidism: Resume Synthroid when no longer NPO Nonalcoholic fatty liver disease: No evidence of decompensation, no known history of cirrhosis or varices. Admission and Anticipated Discharge Date Admission Date: September 26, 2023 Supervising Physician Co-Signing Physician Notes I personally examined the patient and verified all brandon points of history and exam, discussed case, and agree with decision making with Dr Gold Feeling okay. Not weak or lightheaded or dizzy. Is still having some clots with bowel movements. No marilyn blood. No abdominal pain. CT reviewed. Vitals noted, in general she is awake and alert pleasant no distress. HEENT normocephalic atraumatic mucous membranes moist. Breathing unlabored no accessory muscle use good effort. Skin shows no rashes no pallor or icterus. Neuro without focal deficits. Acute GI bleedingalmost certainly lower GI bleed, most probably diverticularwith subsequent acute blood loss anemiafortunately appears to be stabilizing. Unfortunately does still show some bleeding with clots, but hemodynamically stable, no indications for transfusions. Continue to follow closely. Not on any anticoagulants/antiplatelets. Appreciate GI input, may end up needing scope. Discussed diverticular disease with patient and extensively and answered all questions the best my ability. Otherwise as above. Subjective 68F with a PMH of GI bleeding, prediabetes, essential tremor, hypothyroidism, GERD, osteopenia, diverticulosis, splenic mass, tubular adenoma, and non- alcoholic fatty liver disease who presented to the ER on 09/25 for GI bleeding. There have been three prior instances. The first was 02/28/20-03/02/2020, and she was inpatient at [facility] for 3 days. The second one resolved itself. On 03/06/23, it happened for the third time, she came to the ER, and was not admitted. Today, patient was seen at bedside. She reported feeling fine and that she is still passing clots. On Saturday, she started passing blood and clots; she reported that they were bright red. She said this has happened multiple times in the past and that it typically calms down. She said she does not have any symptoms before the GI bleed. The patient reports that this time has been the worst yet and she did not know what to do. On Saturday, she said she was passing more clots but they were not as bright red. She called Dr. Sorensen office on Saturday and said Im doing this again. What do you advise? They set up a colonoscopy in late September. On , she was still passing blood clots and became concerned about blood loss. She called GI again and they said to go to the ER. Currently, no nausea, vomiting, diarrhea, abdominal pain, weakness, lightheadedness. She has not had any black, sticky, tarry stools or stools that are coffee ground in appearance. Patient has not had any GERD symptoms and says she does well with Omeprazole. She said she has been a little tired over the past couple of days. She said that all her life, she has been plagued by constipation. Currently, she takes a Metamucil gummy in the evenings. She tried a generic laxative a long time ago. Currently she is afraid to take a laxative because she does not want to start anything. We spoke at length about the patients nervousness about medications. She has not taken Advil since the first GI bleed because of suggestion that it was due to Advil. That time, she took 2 Advil night before but did not take regularly. She has also not taken any other pain medication. She tried taking Tylenol two weeks after the first GI bleed; the same thing happened, where she started bleeding. Of note, the patient said that she was traveling right before this GI bleed. Traveling to [place] for 2 weeks by car. She said she has not eaten well in several days. Yesterday, she ate toast and a soft boiled egg. Day before, broth and Mongolian muffin. She has drank water. Normally, she tries to eat a well- rounded diet with a lot of vegetables. Review of Systems Review of Systems: Constitutional Negative for fever, chills, sweats, dizziness, unexpected sleep disturbances. Respiratory Negative for SOB and coughing. Negative for chest pain. CV Negative for palpitations and edema in lower extremities. GI Negative for nausea, vomiting, diarrhea, constipation, abdominal pain, and changes in bowel habits. Positive for passing clots. Negative for dysuria, hematuria, increased frequency/urgency, and incontinence. Physical Exam Physical Exam: General: A&Ox3. NAD. Cooperative. Pulm: CTAB A&P. no wheezes, rales, or rhonchi. Symmetrical chest rise. No increased work of breathing. No respiratory distress. Cardiac: RRR, no mrg. Radial pulses intact and symmetrical. Abdominal: Nontender, nondistended, soft. BS present. No epigastric or LLQ pain Results & Data Results & Data Vital Signs (Past 12 Hours) Vital Signs Temp Pulse Pulse Resp BP BP Pulse Ox 09/27/23 14:58 68 09/27/23 13:44 63 09/27/23 13:10 37.0 C 65 18 127/80 97 09/27/23 12:29 127/75 09/27/23 12:00 70 16 09/27/23 11:50 72 14 09/27/23 11:40 70 18 09/27/23 11:30 70 17 09/27/23 11:20 72 13 09/27/23 11:10 79 16 09/27/23 11:00 71 19 09/27/23 10:50 75 23 09/27/23 10:40 75 18 09/27/23 10:34 76 17 09/27/23 10:20 67 16 09/27/23 10:10 68 16 09/27/23 10:00 77 21 09/27/23 09:29 67 13 09/27/23 09:29 123/77 09/27/23 09:00 73 15 09/27/23 08:00 63 25 H 09/27/23 07:10 55 L 09/27/23 07:00 58 L 17 09/27/23 05:00 64 16 97/54 L 97 09/27/23 04:00 87 19 97/74 L 96 O2 Del Method 09/27/23 14:58 09/27/23 13:44 09/27/23 13:10 Room Air 09/27/23 12:29 09/27/23 12:00 09/27/23 11:50 09/27/23 11:40 09/27/23 11:30 09/27/23 11:20 09/27/23 11:10 09/27/23 11:00 09/27/23 10:50 09/27/23 10:40 09/27/23 10:34 09/27/23 10:20 09/27/23 10:10 09/27/23 10:00 09/27/23 09:29 09/27/23 09:29 09/27/23 09:00 09/27/23 08:00 09/27/23 07:10 09/27/23 07:00 09/27/23 05:00 Room Air 09/27/23 04:00 Room Air (1) GIB (gastrointestinal bleeding) GI bleed type/associated pathology: unspecified gastrointestinal hemorrhage type Qualified Code(s): K92.2 - Gastrointestinal hemorrhage, unspecified (5) GERD (gastroesophageal reflux disease) Esophagitis presence: without esophagitis Qualified Code(s): K21.9 - Gastro- esophageal reflux disease without esophagitis
--- NOTE | 2023-09-27 15:58 | Billing Data ---
Date of Service September 27, 2023 Coding Level of Care Code 47543 SUB INP/OBS CARE MIN
--- NOTE | 2023-09-27 16:10 | Electrocardiogram Report ---
Test Reason : Blood Pressure : / mmHG Vent. Rate : 065 BPM Atrial Rate : 065 BPM P-R Int : 168 ms QRS Dur : 080 ms QT Int : 442 ms P-R-T Axes : 071 -01 011 degrees QTc Int : 459 ms Normal sinus rhythm Normal ECG When compared with ECG of 06-MAR-2023 13:35, Premature ventricular complexes are no longer Present Confirmed by Yo Grant ([id number]) on 09/27/2023 4:10:01 PM Referred By: Michael Bernard Confirmed By:Yo Grant
[2023-09-28] MEDS: GABAPENTIN 300 MG CAP PO ONE (05:05)
[2023-09-28] MEDS: LEVOTHYROXINE SODIUM 100 MCG TABLET PO SCH (06:05)
[2023-09-28 06:55] LABS: Basophils # (auto) 0.04 K/uL (0.00-0.20); Basophils % (auto) 0.8 %; Hematocrit (blood only) 24.7 % (37.0-47.0); Immature Granulocytes # (auto) 0.02 K/uL (0.01-0.20); Immature Granulocytes % (auto) 0.4 %; Lymphocytes # (auto) 1.87 K/uL (1.20-3.40); Lymphocytes % (auto) 38.2 %; Mean Corpuscular Hemoglobin 29.3 pg (25.0-34.0); Mean Corpuscular Hgb Conc 32.4 g/dL (32.0-36.0); Mean Corpuscular Volume 90.5 fL (80.0-100.0); Mean Platelet Volume 10.7 fL (9.4-12.4); Monocytes # (auto) 0.58 K/uL (0.11-0.59); Monocytes % (auto) 11.9 %; Neutrophils # (auto) 2.28 K/uL (1.40-6.50); Neutrophils % (auto) 46.7 %; Platelet Count 188 K/uL (130-400); RDW Coefficient of Variation 14.9 % (11.5-14.5); Red Blood Count 2.73 M/uL (4.20-5.40); White Blood Count 4.89 K/ul (4.8-10.8)
--- NOTE | 2023-09-28 06:55 | Discharge Summary ---
Date of Service September 28, 2023 Admission HPI Per Admitting Provider Ana is a 68-year-old female with a past medical history of hypothyroidism, prediabetes, splenic mass, nonalcoholic fatty liver disease, GERD, hyper triglyceridemia, and essential tremor who presents with concerns for GI bleed. Presents with GI bleeding. Bright red blood on 2 bowel movements in the toilet Saturday. Weds some bright red blood with clots, and 1 BM with clots today. Had similar symptoms with prior lower GI bleed. No black, sticky, tarry, or coffee ground in appearance. No lightheadedness or dizziness. No chest pain or chest pressure. No fever chills or sweats No abdominal pain. Does have a hx of GERD, feels this has been 'good as long as I take omeprazole once a day.' No recent flare Diminished appetite for a few days, no diarrhea or constipation. No nausea or vomiting. Medical History: Reviewed Medications: Reviewed Surgical History: Reviewed Family history: Reviewed Allergies: Reviewed Social History: No tobacco use. Rare social etoh use. No recreational drug use. Code Status: Full Code Admission Exam Per Admitting Provider General: A&Ox3. NAD. Cooperative. HEENT: Atraumatic, normocephalic. Pulm: CTAB A&P. -wheezes, -rales, -rhonchi. Symmetrical chest rise. No increased work of breathing. No respiratory distress. Cardiac: RRR, -mrg. Radial pulses intact and symmetrical. Abdominal: Nontender, nondistended, soft. BS present. No epigastric or LLQ pain Principal Diagnosis Gastrointestinal bleed Discharge Data Allergies Allergy/AdvReac Type Severity Reaction Status Date / Time amoxicillin Allergy Severe N/V Verified 09/26/23 20:14 Sulfa (Sulfonamide Allergy Mild SICK IN Verified 09/26/23 20:14 Antibiotics) THE STOMACH benzocaine Allergy Unknown TOPICAL Verified 09/26/23 20:14 BENZOCAINE>SKIN REACTION Consultations 09/26/23 19:11 Consult Gastroenterology Routine 09/26/23 19:21 ED Decision to Admit Stat Ordered Studies 09/27/23 09:52 CT angio abdomen pelvis w con Stat Hospital Course Plan (1) GIB (gastrointestinal bleeding): Plan: - With bright red blood per rectum/rectal bleeding over the 3 days. Differentials included lower GI bleed, internal hemorrhoid rupture, diverticulosis/diverticulitis, colorectal polyps, colorectal cancer, ischemic colitis, rectal ulcers - Currently, patients BP and pulse are low. - Hemoglobin of 9.1 on 09/25 and 8.5 on 09/24. Patient does not have any epigastric pain, nausea, vomiting, etc. - Last EGD found and removed incidental polyp; found inflammation in gastric antrum. Biopsy was negative for h. pylori. Last colonoscopy 03/2020 with multiple diverticula, some with clot, with evidence of recent bleeding at that time for which 6 hemostatic clips were placed. Blood was noted in ascending/transverse/descending colon at that time. - GI was consulted. Ordered CTA-AP (CT-AP angio) - CTAP angio today also showed diverticulosis. - Due to history of prior diverticular bleed and lack of abdominal pain, suspect recurrent diverticular bleed. - Patient switched to clear liquid diet from NPO yesterday evening. (2) Diverticulosis - Colonoscopy 03/2020 revealed multiple diverticula, some with clot. 6 hemostatic clips were placed. - CTAP angio today on 09/26 showed diverticulosis. - GI consulted and deciding on timing of endoscopy. - Patient is currently scheduled for one in late September. However, they may do one while inpatient. (3) Anemia - Currently, patients BP and pulse are low. - Hemoglobin, 8.0 <-- 8.8 <-- 8.5 <-- 9.1 <-- 10.5 (admission) - No indication for transfusion at this time. Continue H&H trended every 8 hours. (4) Constipation - GI previously recommended Metamucil 1 tbsp in 8 ounces of water in the evening and MiraLAX as directed if needed for constipation. - Would advise patient to continue with Metamucil gummy (fiber supplement) every night but to also add Miralax 17 Bid every day. Sliding scale Miralax from there. - Discussion with patient about medications, including laxatives, and relationship with GI bleeds. - Diet high in fiber and low intake of fats and red meats. - F/U with GI within 2 weeks of discharge. (5) GERD (gastroesophageal reflux disease): PPI bolus daily given history of GERD although low suspicion that this is upper GI bleeding. - Continue avoiding NSAIDs. - Plan to restart home omeprazole once patient is not NPO (6) Splenic mass: - Follows with [facility] hematology oncology. 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 - Follow-up imaging suggestive of benign etiology/hemangioma with lymphangioma within the differential. - Patient is currently monitored annually. Plan Chronic stable issues Hypertriglyceridemia: Continue outpatient monitoring Hypothyroidism: Resume Synthroid when no longer NPO Nonalcoholic fatty liver disease: No evidence of decompensation, no known history of cirrhosis or varices. Discharge Plan Discharge Items Reason For Visit: GIB, SUSPECTED LOWER Follow-up/Referrals: Bob Nagy MD [Primary Care Provider] - Medications and DC Order Prescriptions: No Action multivitamin Tablet 1 tab PO HS Qty: 0 cholecalciferol (vitamin D3) [Vitamin D3] 25 mcg (1,000 unit) Tablet 25 mcg PO HS Qty: 0 omeprazole 20 mg capsule,delayed release(DR/EC) 20 mg PO HS Qty: 90 3RF gabapentin 300 mg capsule 300 mg PO QPM Qty: 30 2RF gabapentin 100 mg capsule 100 mg PO QAM levothyroxine 100 mcg tablet 100 mcg PO DAILYBB propranolol 80 mg capsule,extended release 24hr 80 mg PO QAM Admission Data Admit Date/Time: 09/26/23 20:19 Attending Provider: Lux Logan Admit Provider: Jose Carlos Butt Primary Care Provider: Bob Nagy Other Providers: Michael Bernard; Nito Esparza
[2023-09-28 07:44] LABS: BUN Creatinine Ratio 8.9 (10-20); Creatinine Clr Calc Pharmacy 62.5 ml/min; Est GFR (African American) 75.6 ml/min; Est GFR (Non-African American) 65.2 ml/min; Potassium 3.1 mmol/L (3.5-5.1)
[2023-09-28] MEDS: PANTOprazole 40 MG in SYRINGE 0 ML IV SCH (07:57)
[2023-09-28] MEDS: GABAPENTIN 100 MG CAP PO SCH (08:43)
--- NOTE | 2023-09-28 10:37 | Gastroenterology Progress Note ---
Date of Service September 28, 2023 Assessment & Plan (1) GIB (gastrointestinal bleeding): Plan: It is not typical for diverticular bleeding to stop and then restart. She claims she had no bleeding yesterday but it is possible this is clearing out of blood from colon with negative CTA yesterday. It is very rare to find actively bleeding diverticulum on colonoscopy for diverticular hemorrhage when no active bleeding seen on CTA. I have seen an actively bleeding diverticulum only two times in my career. Dr. Bernard did place clips when he did colonoscopy but only "near diverticula that could possibly have bled... he did not report active bleeding". I told her I would like to watch her today and if things worsen or continue then she can be prepped and undergo colonoscopy. Admission and Anticipated Discharge Date Admission Date: September 26, 2023 Subjective Feels like she is starting to bleed again. Has stool in the bedside commode that does have blood with it. Hemoglobin is 8 Physical Exam Physical Exam: She looks frustrated but well Constitutional: WD/WN, vitals as above Results & Data Vital Signs (Past 12 Hours) Vital Signs Temp Pulse Pulse Resp BP BP Pulse Ox 09/28/23 09:03 59 L 09/28/23 08:02 36.7 C 71 18 115/76 98 09/28/23 03:22 36.6 C 67 17 110/69 99 09/27/23 23:27 36.4 C L 64 17 107/66 95 09/27/23 23:26 68 O2 Del Method 09/28/23 09:03 09/28/23 08:02 Room Air 09/28/23 03:22 Room Air 09/27/23 23:27 Room Air 09/27/23 23:26 (1) GIB (gastrointestinal bleeding) GI bleed type/associated pathology: unspecified gastrointestinal hemorrhage type Qualified Code(s): K92.2 - Gastrointestinal hemorrhage, unspecified
[2023-09-28 12:22] LABS: Hematocrit (blood only) 26.9 % (37.0-47.0); Hemoglobin 8.8 g/dl (12.0-16.0)
--- NOTE | 2023-09-28 14:10 | Hospitalist Progress Note ---
Date of Service September 28, 2023 Assessment & Plan (1) Bright red rectal bleeding: (2) GIB (gastrointestinal bleeding): (3) Essential tremor: Plan (1) GIB (gastrointestinal bleeding) - With bright red blood per rectum/rectal bleeding over the 3 days. Di fferentials included lower GI bleed, internal hemorrhoid rupture, diverticulosis/diverticulitis, colorectal polyps, colorectal cancer, ischemic colitis, rectal ulcers. - Patient w/ Hgb of 8.0 this morning, repeat Hgb of 8.8 at noon Patient does not have any epigastric pain, nausea, vomiting, etc. - Last EGD found and removed incidental polyp; found inflammation in gastric antrum. Biopsy was negative for h. pylori. Last colonoscopy 03/2020 with multiple diverticula, some with clot, with evidence of recent bleeding at that time for which 6 hemostatic clips were placed. Blood was noted in ascending/transverse/descending colon at that time. - GI was consulted, ordered CTA-AP (CT-AP angio), which showed diverticulosis. - Due to history of prior diverticular bleed and lack of abdominal pain, suspect recurrent diverticular bleed. - Patient switched to clear liquid diet from NPO yesterday evening. (2) Diverticulosis - Colonoscopy 03/2020 revealed multiple diverticula, some with clot. 6 hemostatic clips were placed. - CTAP angio today on 09/26 showed diverticulosis. - GI is watching patient today and if her bleeding worsens, will prep her to undergo colonoscopy - Patient is currently scheduled for one in late September. However, they may do one while inpatient. (3) Anemia - This morning, patients BP and pulse WNL. - Hemoglobin, 8.0 <-- 8.8 <-- 8.5 <-- 9.1 <-- 10.5 (admission) - No indication for transfusion at this time. Continue H&H trended every ~ 8 hours. (4) Constipation - GI previously recommended Metamucil 1 tbsp in 8 ounces of water in the evening and MiraLAX as directed if needed for constipation. - Would advise patient to continue with Metamucil gummy (fiber supplement) every night but to also add Miralax 17 Bid every day. Sliding scale Miralax from there. - Discussion with patient about medications, including laxatives, and relationship with GI bleeds. - Diet high in fiber and low intake of fats and red meats. - F/U with GI within 2 weeks of discharge. (5) GERD (gastroesophageal reflux disease) PPI bolus daily given history of GERD although low suspicion that this is upper GI bleeding. - Continue avoiding NSAIDs. - Plan to restart home omeprazole once patient is not NPO (6) Splenic mass - Follows with [facility] hematology oncology. 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 - Follow-up imaging suggestive of benign etiology/hemangioma with lymphangioma within the differential. - Patient is currently monitored annually. Plan Chronic stable issues Hypertriglyceridemia: Continue outpatient monitoring Hypothyroidism: Resume Synthroid when no longer NPO Nonalcoholic fatty liver disease: No evidence of decompensation, no known history of cirrhosis or varices. Admission and Anticipated Discharge Date Admission Date: September 26, 2023 Supervising Physician Co-Signing Physician Notes I personally examined the patient and verified all brandon points of history and exam, discussed case, and agree with decision making with Dr Gold bowel movements have moved backwards from clotting to gross blood again. Last bloody bowel movement about 2 hours prior to my seeing her. Tolerating clear liquids. No other acute complaints. GI input appreciated.. Vitals noted, in general she is awake and alert pleasant no distress. HEENT normocephalic atraumatic mucous membranes moist. Breathing unlabored no accessory muscle use good effort. Skin shows no rashes no pallor or icterus. Neuro without focal deficits. Acute GI bleedingalmost certainly lower GI bleed, most probably diverticularwith subsequent acute blood loss anemia Bleeding has restarted, but fortunately does appear to be totally hemodynamically stable, no indications for transfusions. Continue to follow closely. Not on any anticoagulants/antiplatelets. Appreciate GI input, may end up needing scope. without extravasation on CT scan yesterday, doubt that interventional radiology embolization would be able to be localized enough to attempt, and fortunately no indication for surgery at this point. Otherwise as above. Subjective Patient doesn't feel poorly today but has more anxiety as she has had another episode of blood from the rectum unaccompanied by stool. Patient's Hgb was 8.0 this morning but a repeat H&H at noon yielded a value of 8.8 and will continue to take H&H's at regular intervals. Patient not exhibiting any signs or symptoms of anemia including shortness of breath, increased fatigue, noticeable pallor. Patient with only mild lower abdominal pain of 2/10 upon deep palpation. Review of Systems Constitutional: no fever, no chills and no fatigue Ear, Nose, Mouth, Throat: no nasal congestion, no nasal discharge and no sore throat Respiratory: no cough and no dyspnea Cardiovascular: no chest pain and no palpitations Gastrointestinal: + abdominal pain, + diarrhea/loose stool s and + blood in stools Physical Exam Constitutional: well nourished, cooperative and + overweight Respiratory: normal respiratory effort, lungs clear to auscultation Cardiovascular: RRR, no murmur, no edema Gastrointestinal (Abdomen): Inspection/Auscultation: abdomen normal to inspection and normal bowel sounds Percussion/Palpation: + abdomen tender Psychiatric: A+Ox3, euthymic affect Results & Data Results & Data Vital Signs (Past 12 Hours) Vital Signs Temp Pulse Pulse Resp BP BP Pulse Ox 09/28/23 11:42 36.8 C 85 18 126/77 98 09/28/23 09:03 59 L 09/28/23 08:02 36.7 C 71 18 115/76 98 09/28/23 03:22 36.6 C 67 17 110/69 99 O2 Del Method 09/28/23 11:42 Room Air 09/28/23 09:03 09/28/23 08:02 Room Air 09/28/23 03:22 Room Air (2) GIB (gastrointestinal bleeding) GI bleed type/associated pathology: unspecified gastrointestinal hemorrhage type Qualified Code(s): K92.2 - Gastrointestinal hemorrhage, unspecified
--- NOTE | 2023-09-28 14:42 | Billing Data ---
Date of Service September 28, 2023 Coding Level of Care Code 49609 SUB INP/OBS CARE MIN
--- NOTE | 2023-09-28 14:43 | Billing Data ---
Date of Service September 28, 2023 Coding Level of Care Code 61788 SUB INP/OBS CARE MIN
[2023-09-28] MEDS: GABAPENTIN 300 MG CAP PO SCH (20:36)
[2023-09-28] MEDS ORDERED: GABAPENTIN 300 MG CAP PO SCH (21:00)
[2023-09-28 23:14] LABS: Hematocrit (blood only) 29.9 % (37.0-47.0); Hemoglobin 9.4 g/dl (12.0-16.0)
--- NOTE | 2023-09-29 06:52 | Hospitalist Progress Note ---
Date of Service September 29, 2023 Assessment & Plan (1) Bright red rectal bleeding: (2) GIB (gastrointestinal bleeding): (3) Essential tremor: Plan [facility] [place] [address] Hospitalist Progress Note ISigned Patient: ERIBERTO CONTRERAS Admit Date: 09/28/23 MR#: [id number] Att Phy: Lux Logan D.O. Acct ID: [id number] Ledy Phy: Bob Nagy MD Date: 1955 Fam Phy: Age: 68 Location: 2S Sex: F Room/Bed: [facility] cc: ~ *NOTICE TO RECEIVING LIBERTARIAN/AGENCY This information is strictly Confidential and protected under [place] law. [place] law prohibits you from making any further disclosure of this information unless further disclosure is expressly permitted by the written consent of the person to whom it pertains or is authorized by law. A general authorization for the release of medical or other information is not sufficient for this purpose. Hospital accepts no responsibility if the information is made available to any other person, INCLUDING THE PATIENT. Date of Service September 28, 2023 Assessment & Plan (1) Bright red rectal bleeding: (2) GIB (gastrointestinal bleeding): (3) Essential tremor: Plan 1) GIB (gastrointestinal bleeding) - With bright red blood per rectum/rectal bleeding over the 3 days. Differentials included lower GI bleed, internal hemorrhoid rupture, divert iculosis/diverticulitis, colorectal polyps, colorectal cancer, ischemic colitis, rectal ulcers. - Patient w/ Hgb of 8.2 this morning, repeat Hgb scheduled at 6 pm Patient does not have any epigastric pain, nausea, vomiting, etc. - Last EGD found and removed incidental polyp; found inflammation in gastric antrum. Biopsy was negative for h. pylori. Last colonoscopy 03/2020 with multiple diverticula, some with clot, with evidence of recent bleeding at that time for which 6 hemostatic clips were placed. Blood was noted in ascending/transverse/descending colon at that time. - GI was consulted, ordered CTA-AP (CT-AP angio), which showed diverticulosis. - Due to history of prior diverticular bleed and lack of abdominal pain, suspect recurrent diverticular bleed. - Patient switched to clear liquid diet from NPO yesterday evening, has been tolerating albeit with intermittent bloody discharges from rectum 2) Diverticulosis - Colonoscopy 03/2020 revealed multiple diverticula, some with clots in sigmoid, ascending, transverse, and descending colon. 6 hemostatic clips were placed. - CT-AP angio on 08/2923 showed diverticulosis. - GI is watching patient today and if her bleeding worsens, will prep her to undergo colonoscopy - Patient is currently scheduled for one in late September. However, they may do one while inpatient. 3) Anemia - This morning, patients BP and pulse WNL. - Hemoglobin, 8.2 <-- 8.8 <-- 8.5 <-- 9.1 <-- 10.5 (admission) - No indication for transfusion at this time. Continue H&H trended every ~ 12 hours. 4) Constipation - GI previously recommended Metamucil 1 tbsp/8 ounces of water in evening, MiraLAX as directed if needed for constipation. - Advised patient to continue with Metamucil gummy (fiber supplement) every night, add Miralax 17g Bid every day. Sliding scale Miralax from there. - Discussion with patient about medications, including laxatives, and relationship with GI bleeds. - Diet high in fiber and low intake of fats and red meats. - F/U with GI within 2 weeks of discharge. 5) GERD (gastroesophageal reflux disease) PPI/pantoprazole, 40 mg, IV, bolus daily --> given history of GERD although low suspicion this is upper GI bleeding. - Continue avoiding NSAIDs. - Plan to restart home omeprazole once patient is not NPO 6) Splenic mass - Follows with [facility] hematology oncology. 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 - Follow-up imaging suggestive of benign etiology/hemangioma with lymphangioma within the differential. - Patient is currently monitored annually. Plan Chronic stable issues Hypertriglyceridemia: Continue outpatient monitoring Hypothyroidism: Resume Synthroid when no longer NPO Nonalcoholic fatty liver disease: No evidence of decompensation, no known history of cirrhosis or varices. Admission and Anticipated Discharge Date Admission Date: September 28, 2023 Supervising Physician Co-Signing Physician Notes I personally examined the patient and verified all brandon points of history and exam, discussed case, and agree with decision making with Dr Gold Case also discussed with [place] greatly appreciated. Patient noted her last bowel movement was brown and watery, may be a few very small clots, but questionable, and definitely no red blood. Feeling better overall. Vitals noted, in general she is awake and alert pleasant no distress. HEENT normocephalic atraumatic mucous membranes moist. Breathing unlabored no accessory muscle use good effort. Skin shows no rashes no pallor or icterus. Neuro without focal deficits. Acute GI bleedingalmost certainly lower GI bleed, most probably diverticularwith subsequent acute blood loss anemia Bleeding appears to be slowing and/or stopped. Doubt any intervention will be needed. Discussed with patient that is actually far more common the diverticular bleeding will self resolve then would require an intervention. Follow into tomorrow, if by tomorrow morning she is clearly stop bleeding, advance diet, and hopefully home by late afternoon or evening. Outpatient colonoscopy then. Transfer to medical. Otherwise as above. Subjective Patient doesn't feel poorly today but has continued anxiety related to intermittent episodes of blood from the rectum unaccompanied by stool. Last episode was around dinner last night. Patient's Hgb was 8.2 this morning but a repeat H&H at 2 pm is scheduled and will continue to take H&H's at regular intervals. Patient not exhibiting any signs or symptoms of anemia including shortness of breath, increased fatigue, noticeable pallor. Patient with only mild lower abdominal pain of 2/10 upon deep palpation, but without pain at rest in bed. Review of Systems Constitutional: no fever, no chills and no fatigue Ear, Nose, Mouth, Throat: no nasal congestion, no nasal discharge and no sore throat Respiratory: no cough and no dyspnea Cardiovascular: no chest pain and no palpitations Gastrointestinal: + abdominal pain, + diarrhea/loose stool s and + blood in stools Physical Exam Constitutional: well nourished, cooperative and + overweight Respiratory: normal respiratory effort, lungs clear to auscultation Cardiovascular: RRR, no murmur, no edema Gastrointestinal (Abdomen): Inspection/Auscultation: abdomen normal to inspection and normal bowel sounds Percussion/Palpation: abdomen soft; abdomen nontender Psychiatric: A+Ox3, euthymic affect Results & Data Results & Data Vital Signs (Past 12 Hours) Vital Signs Temp Pulse Pulse Resp BP Pulse Ox O2 Del Method 09/29/23 03:05 36.4 C L 68 17 119/76 98 Room Air 09/29/23 00:16 84 09/28/23 23:20 36.4 C L 76 17 109/78 95 Room Air 09/28/23 20:30 36.4 C L 74 17 132/67 97 Room Air Resident Activity Tracking Resident Involvement: Resident Care Provided Care Provided: Adult Hospital Medicine (2) GIB (gastrointestinal bleeding) GI bleed type/associated pathology: unspecified gastrointestinal hemorrhage type Qualified Code(s): K92.2 - Gastrointestinal hemorrhage, unspecified
[2023-09-29 06:56] LABS: Basophils # (auto) 0.05 K/uL (0.00-0.20); Basophils % (auto) 0.9 %; Eosinophils # (auto) 0.15 K/uL (0.00-0.50); Eosinophils % (auto) 2.8 %; Hematocrit (blood only) 25.9 % (37.0-47.0); Hemoglobin 8.2 g/dl (12.0-16.0); Immature Granulocytes # (auto) 0.02 K/uL (0.01-0.20); Immature Granulocytes % (auto) 0.4 %; Lymphocytes # (auto) 1.76 K/uL (1.20-3.40); Lymphocytes % (auto) 33.3 %; Mean Corpuscular Hemoglobin 29.3 pg (25.0-34.0); Mean Corpuscular Hgb Conc 31.7 g/dL (32.0-36.0); Mean Corpuscular Volume 92.5 fL (80.0-100.0); Mean Platelet Volume 11.1 fL (9.4-12.4); Monocytes # (auto) 0.66 K/uL (0.11-0.59); Monocytes % (auto) 12.5 %; Neutrophils # (auto) 2.64 K/uL (1.40-6.50); Neutrophils % (auto) 50.1 %; Platelet Count 207 K/uL (130-400); RDW Coefficient of Variation 15.1 % (11.5-14.5); RDW Standard Deviation 50.5 fL (36.4-46.3); White Blood Count 5.28 K/ul (4.8-10.8)
[2023-09-29 07:10] LABS: BUN Creatinine Ratio 8.4 (10-20); Calcium 8.1 mg/dl (8.6-10.3); Creatinine Clr Calc Pharmacy 67.7 ml/min; Est GFR (African American) 83.4 ml/min; Est GFR (Non-African American) 71.9 ml/min; Potassium 3.3 mmol/L (3.5-5.1)
--- NOTE | 2023-09-29 09:19 | Gastroenterology Progress Note ---
Date of Service September 29, 2023 Assessment & Plan (1) GIB (gastrointestinal bleeding): Plan: Bleeding seems to have stopped or is slowing down. What she describes sounds like clearing of old clots. If no further bleeding and H/H remain stable probably good for discharge tomorrow. If bleeding restarts Dr. Green can make decision about colonoscopy Admission and Anticipated Discharge Date Admission Date: September 28, 2023 Subjective Feeling "the same". Passed some loose stool with old clots but the stool was normal. Hgb 8.2 today. Fluctuated all day yesterday. Physical Exam Physical Exam: She looks well Constitutional: WD/WN, vitals as above Results & Data Vital Signs (Past 12 Hours) Vital Signs Temp Pulse Pulse Resp BP Pulse Ox O2 Del Method 09/29/23 08:34 75 09/29/23 07:49 36.6 C 60 17 121/81 96 Room Air 09/29/23 03:05 36.4 C L 68 17 119/76 98 Room Air 09/29/23 00:16 84 09/28/23 23:20 36.4 C L 76 17 109/78 95 Room Air (1) GIB (gastrointestinal bleeding) GI bleed type/associated pathology: unspecified gastrointestinal hemorrhage type Qualified Code(s): K92.2 - Gastrointestinal hemorrhage, unspecified
--- NOTE | 2023-09-29 15:23 | Billing Data ---
Date of Service September 29, 2023 Coding Level of Care Code 25945 SUB INP/OBS CARE
[2023-09-29 17:53] LABS: Hematocrit (blood only) 27.3 % (37.0-47.0); Hemoglobin 8.5 g/dl (12.0-16.0)
[2023-09-29] MEDS: PANTOprazole 40 MG TAB PO SCH (20:24)
[2023-09-29] MEDS: CHOLECALCIFEROL 25 MCG (1000 UNITS) TAB PO SCH (20:24)
[2023-09-30 07:12] LABS: Basophils # (auto) 0.07 K/uL (0.00-0.20); Basophils % (auto) 1.4 %; Eosinophils # (auto) 0.17 K/uL (0.00-0.50); Eosinophils % (auto) 3.4 %; Hematocrit (blood only) 25.9 % (37.0-47.0); Hemoglobin 8.3 g/dl (12.0-16.0); Immature Granulocytes # (auto) 0.01 K/uL (0.01-0.20); Immature Granulocytes % (auto) 0.2 %; Lymphocytes # (auto) 1.96 K/uL (1.20-3.40); Lymphocytes % (auto) 39.2 %; Mean Corpuscular Hemoglobin 29.3 pg (25.0-34.0); Mean Corpuscular Volume 91.5 fL (80.0-100.0); Mean Platelet Volume 11.3 fL (9.4-12.4); Monocytes # (auto) 0.52 K/uL (0.11-0.59); Monocytes % (auto) 10.4 %; Neutrophils # (auto) 2.27 K/uL (1.40-6.50); Neutrophils % (auto) 45.4 %; Platelet Count 218 K/uL (130-400); RDW Coefficient of Variation 15.2 % (11.5-14.5); RDW Standard Deviation 50.3 fL (36.4-46.3); Red Blood Count 2.83 M/uL (4.20-5.40)
--- NOTE | 2023-09-30 07:16 | Hospitalist Progress Note ---
Date of Service September 30, 2023 Assessment & Plan (1) Bright red rectal bleeding: (2) GIB (gastrointestinal bleeding): (3) Essential tremor: Plan Pt is a 68 yo female with a past medical history of hypothyroidism, essential tremor, prediabetes, osteopenia, splenic mass, non-alcoholic fatty liver disease, GERD, hypertriglyceridemia, and hx diverticulosis who presents to the hospital on 09/25 for GI bleed, admitted for continued GI bleed with associated anemia. Today, will advance diet to regular and if tolerating it overnight, possible D/C tomorrow with OP GI follow-up for already scheduled colonoscopy later this month. Will stop IVF since tolerating diet. #GIB (gastrointestinal bleeding) - admitted with bright red blood per rectum/rectal bleeding over the 3 days without pain, \ - Last EGD found and removed incidental polyp; found inflammation in gastric antrum. Biopsy was negative for h. pylori. Last colonoscopy 03/2020 with multiple diverticula, some with clot, with evidence of recent bleeding at that time for which 6 hemostatic clips were placed. Blood was noted in ascending/transverse/descending colon at that time. - GI was consulted, ordered CTA-AP; showed diverticulosis, recommend OP colonoscopy as already scheduled later this month - Due to history of prior diverticular bleed and lack of abdominal pain, suspect recurrent diverticular bleed. - will advance diet today from clear to regular #Diverticulosis - Colonoscopy 03/2020 revealed multiple diverticula, some with clots in sigmoid, ascending, transverse, and descending colon. 6 hemostatic clips were placed. - CT-AP angio on 08/2923 showed diverticulosis. - pt j[facility] for colonoscopy outpatient later this month #Anemia - This morning, patients BP and pulse WNL. - Hemoglobin, 10.5 on admission down to 8.0 at lowest, today 8.3 - No indication for transfusion at this time. Continue H&H trended every ~ 12 hours. #Constipation - GI previously recommended Metamucil 1 tbsp/8 ounces of water in evening, MiraLAX as directed if needed for constipation. - Advised patient to continue with Metamucil gummy (fiber supplement) every night, add Miralax 17g Bid every day. Sliding scale Miralax from there. - Discussion with patient about medications, including laxatives, and relationship with GI bleeds. - Diet high in fiber and low intake of fats and red meats. - F/U with GI within 2 weeks of discharge. #GERD (gastroesophageal reflux disease) PPI/pantoprazole, 40 mg, IV, bolus daily --> given history of GERD although low suspicion this is upper GI bleeding. - Continue avoiding NSAIDs. - Continue pantoprazole (on omeprazole at home) #Splenic mass - Follows with [facility] hematology oncology. 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 - Follow-up imaging suggestive of benign etiology/hemangioma with lymphangioma within the differential. - Patient is currently monitored annually. Chronic stable issues Hypertriglyceridemia: Continue outpatient monitoring Hypothyroidism: Continue home synthroid Nonalcoholic fatty liver disease: No evidence of decompensation, no known history of cirrhosis or varices. DVT ppx; deferred in setting of GI bleed Admission and Anticipated Discharge Date Admission Date: September 28, 2023 Supervising Physician Co-Signing Physician Notes Attending Physician Supervision Note: I independently interviewed and examined the patient and verified the brandon history and physical, reviewed labs and image studies and agree with findings and care plan noted above. GIB - hx of diverticular. likely etiology this time as well. bleeding improved. -advance diet. anticipate d/c home in am. SCD Subjective Pt is a 68 yo female with a past medical history of hypothyroidism, essential tremor, prediabetes, osteopenia, splenic mass, non-alcoholic fatty liver disease, GERD, hypertriglyceridemia, and hx diverticulosis who [facility], admitted for continued GI bleed with associated anemia. Today, pt states she is feeling well. She states that her last BM was last night and was brown with no red blood or clots noted. She is tolerating diet with no nausea or vomiting or abdominal pain. No questions or complaints otherwise. No chest pain or SOB. No fever or chills. Review of Systems Review of Systems: Per HPI. Physical Exam Physical Exam: General:Alert and oriented, no acute distress, HEENT: Normocephalic, moist oral mucosa, Cardio: Regular rate and rhythm, no murmur, Resp:Lungs clear to auscultation b/l, no wheezes or rhonchi, GI: Soft and nontender, nondistended, bowel sounds active Skin: Warm, pink, dry, Results & Data Results & Data Vital Signs (Past 12 Hours) Vital Signs O2 Del Method 09/29/23 20:20 Room Air Resident Activity Tracking Resident Involvement: Resident Care Provided Care Provided: Adult Hospital Medicine (2) GIB (gastrointestinal bleeding) GI bleed type/associated pathology: unspecified gastrointestinal hemorrhage type Qualified Code(s): K92.2 - Gastrointestinal hemorrhage, unspecified
--- NOTE | 2023-09-30 11:15 | Gastroenterology Progress Note ---
Date of Service September 30, 2023 Assessment & Plan (1) GIB (gastrointestinal bleeding): Plan: Suspect that bleeding was diverticular in nature. She has had a similar episode in the past. no other GI concerns. - okay to advance diet as tolerated. - she is planned for colonoscopy as outpatient later this month. she can proceed with this and follow up in the office afterwards. Supervising Physician Co-Signing Physician Notes Agree with Paco Garsia, PAC Abd: Soft, NT, ND, +BS No further bloody/black BM's Continue current therapy and supportive care Outpatient colonoscopy scheduled for later in September Subjective Patient tells me she has not seen any further bleeding. She tells me stools are starting to become more normal. hgb stable today at 8.3 (was 8.5). rest of GI ros are unremarkable. She tells me she was told earlier that she can advanced diet - she is now on clears. she has not had a chance to trial this yet. Review of Systems Review of Systems: All systems reviewed & are unremarkable except as noted in HPI & below Physical Exam Constitutional: WD/WN, vitals as above Respiratory: normal respiratory effort, lungs clear to auscultation Cardiovascular: RRR, no murmur, no edema Gastrointestinal (Abdomen): normal bowel sounds, soft, nontender, no hepatosplenomegaly Psychiatric: Orientation: alert and oriented x 3 Affect: euthymic affect Results & Data Results & Data Vital Signs (Past 12 Hours) Vital Signs Temp Pulse Resp BP Pulse Ox O2 Del Method 09/30/23 07:55 97.9 F 59 L 18 114/68 97 Room Air Coding Level of Care Code 30260 SUB INP/OBS CARE 25MIN Diagnoses GIB (gastrointestinal bleeding) K92.2 GI bleed type/associated pathology: unspecified gastrointestinal hemorrhage type (1) GIB (gastrointestinal bleeding) GI bleed type/associated pathology: unspecified gastrointestinal hemorrhage type Qualified Code(s): K92.2 - Gastrointestinal hemorrhage, unspecified
[2023-09-30] MEDS: POTASSIUM CHLORIDE CRTAB 20 MEQ TABCR PO STA (18:30)
[2023-10-01 08:12] LABS: Basophils # (auto) 0.07 K/uL (0.00-0.20); Basophils % (auto) 1.2 %; Eosinophils # (auto) 0.15 K/uL (0.00-0.50); Eosinophils % (auto) 2.5 %; Hematocrit (blood only) 27.4 % (37.0-47.0); Hemoglobin 8.6 g/dl (12.0-16.0); Immature Granulocytes # (auto) 0.02 K/uL (0.01-0.20); Immature Granulocytes % (auto) 0.3 %; Lymphocytes # (auto) 2.12 K/uL (1.20-3.40); Lymphocytes % (auto) 34.9 %; Mean Corpuscular Hemoglobin 29.5 pg (25.0-34.0); Mean Corpuscular Hgb Conc 31.4 g/dL (32.0-36.0); Mean Corpuscular Volume 93.8 fL (80.0-100.0); Mean Platelet Volume 11.2 fL (9.4-12.4); Monocytes # (auto) 0.72 K/uL (0.11-0.59); Monocytes % (auto) 11.8 %; Neutrophils % (auto) 49.3 %; Platelet Count 256 K/uL (130-400); RDW Coefficient of Variation 15.3 % (11.5-14.5); RDW Standard Deviation 51.8 fL (36.4-46.3); Red Blood Count 2.92 M/uL (4.20-5.40); White Blood Count 6.08 K/ul (4.8-10.8)
--- NOTE | 2023-10-01 14:12 | Discharge Summary ---
Date of Service October 01, 2023 Admission HPI Per Admitting Provider Ana is a 68-year-old female with a past medical history of hypothyroidism, prediabetes, splenic mass, nonalcoholic fatty liver disease, GERD, hyper triglyceridemia, and essential tremor who presents with concerns for GI bleed. Presents with GI bleeding. Bright red blood on 2 bowel movements in the toilet Saturday. Weds some bright red blood with clots, and 1 BM with clots today. Had similar symptoms with prior lower GI bleed. No black, sticky, tarry, or coffee ground in appearance. No lightheadedness or dizziness. No chest pain or chest pressure. No fever chills or sweats No abdominal pain. Does have a hx of GERD, feels this has been 'good as long as I take omeprazole once a day.' No recent flare Diminished appetite for a few days, no diarrhea or constipation. No nausea or vomiting. Medical History: Reviewed Medications: Reviewed Surgical History: Reviewed Family history: Reviewed Allergies: Reviewed Social History: No tobacco use. Rare social etoh use. No recreational drug use. Code Status: Full Code Admission Exam Per Admitting Provider General: A&Ox3. NAD. Cooperative. HEENT: Atraumatic, normocephalic. Pulm: CTAB A&P. -wheezes, -rales, -rhonchi. Symmetrical chest rise. No increased work of breathing. No respiratory distress. Cardiac: RRR, -mrg. Radial pulses intact and symmetrical. Abdominal: Nontender, nondistended, soft. BS present. No epigastric or LLQ pain Principal Diagnosis Lower GI bleed Discharge Exam General:Alert and oriented, no acute distress, HEENT: Normocephalic, moist oral mucosa, Cardio: Regular rate and rhythm, no murmur, Resp:Lungs clear to auscultation b/l, no wheezes or rhonchi, GI: Soft and nontender, nondistended, bowel sounds active Skin: Warm, pink, dry, Discharge Data Allergies Allergy/AdvReac Type Severity Reaction Status Date / Time amoxicillin Allergy Severe N/V Verified 09/26/23 20:14 Sulfa (Sulfonamide Allergy Mild SICK IN Verified 09/26/23 20:14 Antibiotics) THE STOMACH benzocaine Allergy Unknown TOPICAL Verified 09/26/23 20:14 BENZOCAINE>SKIN REACTION Consultations 09/26/23 19:11 Consult Gastroenterology Routine 09/26/23 19:21 ED Decision to Admit Stat Ordered Studies 09/27/23 09:52 CT angio abdomen pelvis w con Stat Hospital Course (1) Bright red rectal bleeding: (2) GIB (gastrointestinal bleeding): (3) Essential tremor: Plan Pt is a 68 yo female with a past medical history of hypothyroidism, essential tremor, prediabetes, osteopenia, splenic mass, non-alcoholic fatty liver disease, GERD, hypertriglyceridemia, and hx diverticulosis who presents to the hospital on 09/25 for GI bleed, admitted for continued GI bleed with associated anemia. #GIB (gastrointestinal bleeding), nearly resolved - admitted with bright red blood per rectum/rectal bleeding over the 3 days without pain, - Last EGD - removed incidental polyp; found inflammation in gastric antrum. Biopsy was negative for h. pylori. Last colonoscopy 03/2020 with multiple diverticula, some with clot, with evidence of recent bleeding at that time for which 6 hemostatic clips were placed. Blood was noted in ascending/transverse/descending colon at that time. - GI was consulted, ordered CTA-AP; showed diverticulosis, recommend OP colonoscopy as already scheduled later this month - Bleed considered diverticular. - tolerated reg diet yesterday and today with only slight blood in BM last night - pt already irina for colonoscopy outpatient later this month #Anemia, stable - This morning, patients BP and pulse WNL. - Hemoglobin, 10.5 on admission down to 8.0 at lowest, today 8.6 #Constipation - GI previously recommended Metamucil 1 tbsp/8 ounces of water in evening, MiraLAX as directed if needed for constipation. - Advised patient to continue with Metamucil gummy (fiber supplement) every night, add Miralax 17g Bid every day. Sliding scale Miralax from there. - Diet high in fiber and low intake of fats and red meats. #GERD (gastroesophageal reflux disease) - Continue avoiding NSAIDs. - Continue pantoprazole while here (on omeprazole at home, can resume this instead on discharge) Chronic stable issues - Splenic mass: outpatient oncology f/u. already established. Hypertriglyceridemia: Continue outpatient monitoring Hypothyroidism: Continue home synthroid Nonalcoholic fatty liver disease: No evidence of decompensation, no known history of cirrhosis or varices. Total Time Total Time Spent Total Time Spent (In Minutes): As per attending attestation. Discharge Plan Discharge Items Patient Disposition: Home - Self-Care Reason For Visit: GIB, SUSPECTED LOWER Discharge Diagnosis: Gastrointestinal bleed with significant anemia Activity: Per Instructions section Non-emergency contact: Primary Care Provider and [employer]er Call non-emergency contact if: you have any medication questions and your symptoms worsen Follow-up/Referrals: Bob Nagy MD [Primary Care Provider] - 10/08/23 2:00 pm (with Kelly Jm) Diet: Regular Addtl Attending Provider Instructions: You were admitted for gastrointestinal bleeding with overt blood in the stool causing significant anemia (low blood hemoglobin levels). Your bleeding has greatly improved and your hemoglobin level has stabilized. You are still anemic currently, as it takes the body some time to replenish your red blood cells that you lost through bleeding, but this should improve over the coming weeks. You may notice with your anemia that you feel more winded doing your normal activities/exercises and more tired in general. This should also improve over the coming weeks as your blood levels improve. Our GI(gastrointestinal, or stomach) doctors saw you during your stay with us and determined your bleeding has improved and recommend you continue with your scheduled colonoscopy later this month and follow-up with them after discharge from the hospital. As your symptoms of bleeding have improved and you are tolerating eating and drinking without nausea, vomiting, pain, or diarrhea, we feel it is safe for you to return home at this time. Medications: Your medication list has been reviewed and reconciled upon discharge to ensure accuracy and continuity of care. An updated list of all your medications is included with your hospital discharge paperwork. Please review this list closely, and make note of any changes. NO medication changes were made this hospital visit. Please resume all your normal home medications once you get home as you took them prior to this hospitalization. Take your medications as instructed; do not skip a dose of your medicines. Make sure all of your doctors know every medicine you are taking (including [id number] medicines, vitamins, and supplements). Call your primary care provider before taking any new medicines (including over- the-counter medicines, vitamins, and supplements), because some of these may interact with your current medications, or may make your symptoms worse. Tell your primary care provider if you cannot afford your medications. Activity: You can do normal everyday activities as your body allows. Take rest breaks if you feel tired. Do not overexert. Stop activity if you have pain, shortness of breath or feel dizzy. Follow-up appointments: Make an appointment with your primary care physician within one week of discharge. A copy of this summary will be sent to them. Every time you see your primary care physician, or any other doctor, bring your medication list and a list of questions. CONTACT YOUR PRIMARY CARE PROVIDER if you experience any of the following: Shortness of breath or difficulty breathing Swelling of your feet, ankles, hands or abdomen Difficulty following your treatment plan, or difficulty taking medications CALL 911 OR GO TO THE EMERGENCY DEPARTMENT if you experience any of the following: Severe abdominal pain or nausea/vomiting Severe chest pain, or chest pain that radiates (moves) to your jaw or arm Sudden, severe shortness of breath or difficulty breathing Thank you for allowing us to participate in your care. Pending Studies at Discharge: No Stand-Alone Forms: My [facility] Medications and DC Order Prescriptions: Continued multivitamin Tablet 1 tab PO HS Qty: 0 cholecalciferol (vitamin D3) [Vitamin D3] 25 mcg (1,000 unit) Tablet 25 mcg PO HS Qty: 0 omeprazole 20 mg capsule,delayed release(DR/EC) 20 mg PO HS Qty: 90 3RF gabapentin 300 mg capsule 300 mg PO QPM Qty: 30 2RF gabapentin 100 mg capsule 100 mg PO QAM levothyroxine 100 mcg tablet 100 mcg PO DAILYBB propranolol 80 mg capsule,extended release 24hr 80 mg PO QAM Discharge Orders: Discharge Order (Routine); Ordered 10/01/23 Ordered By: Ronit Forbes Admission Data Admit Date/Time: 09/28/23 14:42 Attending Provider: Jazzy Guaman Admit Provider: Jose Carlos Butt Primary Care Provider: Bob Nagy Other Providers: Michael Bernard; Nito Esparza; Lux Logan Other Interventions: Discharge Summary Assessment (RN) Last Done: 10/01/23 14:37 Supervising Physician Co-Signing Physician Notes Attending Physician Supervision Note: I independently interviewed and examined the patient and verified the brandon history and physical, reviewed labs and image studies and agree with findings and care plan noted above. Resident Activity Tracking Resident Involvement: Resident Care Provided Care Provided: Adult [facility]
== END 2023-10-01 17:00 | disposition home or self-care (01) | DRG 378 ==
LOC: SUATTDRO → ED 16:35 → EDINP 16:35 → SUATTDRO 20:19 → 2S 22:40 → SUATTDRO 09-28 14:42 → 3W 09-29 17:53